=== PATIENT | male | born 1940 | race Caucasian/White ===

== ENCOUNTER 2017-05-19 11:57 | Inpatient (IN) | payer MEDICARE, OTHER ==
[~2017-05-19] VITALS: Ht 167.6 cm; Wt 76.2 kg
[~2017-05-19 11:57] MED LIST: ATOR40TA PO; CLOP75TA2 PO; FERR1TAB44 PO; FINA5TAB11 PO; METO-302 PO; TAMS0.4C34 PO
--- NOTE | 2017-05-19 12:05 | NUR ---
PATIENT BIB RA D/T FEVER THIS MORNING. PATIENT IS VENT/TRACH DEPENDENT. NO SOB. PATIENT IS HYPOTENSIVE AT THIS TIME. NO FEVER AT THIS TIME. PATIENT HAS GT AND PICC ON JUAN A. SAFTY AND COMFORT MEASURES IN PLACE. AWAITING MD ORDERS.
[2017-05-19 12:19] VITALS: BP 93/54
--- NOTE | 2017-05-19 12:19 | NUR ---
PT LACED ON [facility] VENT VIA TRACH SIZE 6DCT SHILEY. VENT SETTINGS BELLOW PER RT TRANSPORTER: AC 16 VT 500 FIO2 40% PEEP 5 BREATH SOUNDS CLEAR BILATERAL. RAFFY @ BEDSIDE. Addendum: 05/19/17 at 1234 by LOTTIE ROBB RT Amended: Links added.
--- NOTE | 2017-05-19 12:27 | NUR ---
BLOOD DRAWN FROM PICC LINE AND SENT TO LAB.
[2017-05-19] MEDS ORDERED: PIPERACILLIN /TAZOBACTAM 3.375 G in IV D5W 50 ML IV ONE (12:30)
[2017-05-19] MEDS ORDERED: AZTREONAM 2 G in IV NS 0.9% 100 ML IV ONE (12:30)
[2017-05-19] MEDS ORDERED: ACETAMINOPHEN 650 MG/SUPP.RECT RC ONE ×2 (12:30→12:39)
[2017-05-19] MEDS ORDERED: IV NS 0.9% 1,000 ML BAG IV ONE (12:30)
[2017-05-19 12:51] LABS: BASOPHILS # (AUTO) 0.1 /CMM (0.0-0.2); BASOPHILS % (AUTO) 0.6 % (0.0-2.0); EOSINOPHILS # (AUTO) 0.5 /CMM (0.0-0.7); EOSINOPHILS % (AUTO) 5.4 % (0.0-6.0); HEMATOCRIT 25 % (39-51); HEMOGLOBIN 8.4 g/dL (13.5-17.5); LYMPHOCYTES # (AUTO) 1.6 /CMM (0.8-4.8); LYMPHOCYTES % (AUTO) 18.8 % (20.0-44.0); MEAN CORPUSCULAR HEMOGLOBIN 29 PG (26.0-33.0); MEAN CORPUSCULAR HGB CONC 33 g/dl (31.0-36.0); MEAN CORPUSCULAR VOLUME 88 fL (80-96); MONOCYTES # (AUTO) 0.5 /CMM (0.1-1.30); MONOCYTES % (AUTO) 6.1 % (2.0-12.0); NEUTROPHILS # (AUTO) 5.8 /CMM (1.8-8.9); NEUTROPHILS % (AUTO) 69.1 % (43.0-81.0); PLATELET COUNT (AUTO) 217 /CMM (150-450); RED BLOOD CELL COUNT(AUTO) 2.86 MIL/uL (4.5-6.0); WHITE BLOOD COUNT (AUTO) 8.5 K/uL (4.3-11.0)
[2017-05-19 12:59] LABS: CALCIUM, SERUM 8.4 mg/dL (8.5-10.1); CARBON DIOXIDE 28 mmol/L (21-32); CHLORIDE 103 mmol/L (98-107); GLUCOSE 98 mg/dL (74-106); POTASSIUM 3.5 mmol/L (3.5-5.1); SODIUM SERUM 139 mmol/L (136-145); UREA NITROGEN, BLOOD 31 mg/dL (7-18)
[2017-05-19 13:05] LABS: ALANINE AMINOTRANSFERASE 41 U/L (12-78); ALBUMIN 1.8 g/dL (3.4-5.0); ALKALINE PHOSPHATASE 144 U/L (46-116); ASPARTATE AMINOTRANSFERASE 31 U/L (15-37); BILIRUBIN,DIRECT 0.1 mg/dL (0.0-0.2); BILIRUBIN,TOTAL 0.3 mg/dL (0.2-1.0); TOTAL PROTEIN, SERUM 7.6 g/dL (6.4-8.2)
[2017-05-19 13:06] LABS: INR 0.97 (0.87-1.13); PROTHROMBIN TIME 10.1 SECS (9.5-12.7)
[2017-05-19 13:07] LABS: TROPONIN I < 0.017 ng/mL (0.00-0.056)
--- NOTE | 2017-05-19 13:20 | NUR ---
URINE OBTAINED FROM JOLLEY CATH AND SENT TO LAB.
[2017-05-19 13:47] LABS: APPEARANCE,URINE Clear (CLEAR); BILIRUBIN,URINE Negative (NEGATIVE); BLOOD, URINE Trace-intact Ery/uL (NEGATIVE); COLOR,URINE Yellow (YELLOW); KETONES,URINE Negative (NEGATIVE); LEUKOCYTE ESTERASE ,URINE Large (NEGATIVE); NITRITE, URINE Positive (NEGATIVE); PH,URINE 7.5 (5.0-8.0); PROTEIN,URINE Trace mg/dl (NEGATIVE); UGLUCOSE Negative (NEGATIVE); UROBILINOGEN,URINE 0.2 EU/dL (0.2)
[2017-05-19 13:54] LABS: BACTERIA,URINE Few /HPF (None Seen); RBC,URINE 0-3 /HPF (0-2); WBC,URINE 80-100 /HPF (0-3)
[2017-05-19 13:55] LABS: SQUAMOUS EPITHELIAL CELL,UR Few /HPF (None Seen)
--- NOTE | 2017-05-19 14:03 | NUR ---
GROUP CALLED, DECKHAND CRAB BOAT, PAGED TO CALL BACK
--- NOTE | 2017-05-19 14:16 | NUR ---
CALLED NURSING SUP. FOR TELE BED
--- NOTE | 2017-05-19 15:14 | NUR ---
REPORT GIVEN TO YUE TELLES FOR ADMISSION.
[2017-05-19] MEDS ORDERED: ACET325T53 GT ×2 (15:33)
[2017-05-19] MEDS ORDERED: CLON0.5T4 GT (15:33)
[2017-05-19] MEDS ORDERED: IPRA3AMP IH ×2 (15:33)
[2017-05-19] MEDS ORDERED: DOCU100T2 GT (15:33)
[2017-05-19] MEDS ORDERED: BISA5TAB10 GT (15:33)
--- NOTE | 2017-05-19 15:35 | NUR ---
PATIENT TRANSPORTED TO [facility] FOR ADMISSION VIA STRETCHER WITH EMT, RN, AND RT. KOKI RANGEL TO PROVIDE MINOR.
--- NOTE | 2017-05-19 15:40 | NUR ---
RN INITIAL NOTE RECEIVED PT FROM ER VIA JT. UNABLE TO RECEIVE REPORT TAKEN DONE BY SRINIVAS Calle. PT NON VERBAL. PICC LINE. FC. VENT. PICTURES TAKEN AND PLACED IN CHART WILL CONTINUE TO MONITOR. SON AND @ BEDSIDE. TELE SR. NO S/S OF SOB. BED BATH DONE.
--- NOTE | 2017-05-19 15:43 | NUR ---
TRANSFERRED FROM ER TO 107, PT USED SAME [facility] VENT. VENT PLUGGED ON RED OUTLET WITH ALARMS ON AND AUDIBLE. Addendum: 05/19/17 at 1544 by LOTTIE ROBB RT Amended: Links added.
--- NOTE | 2017-05-19 15:51 | NUR ---
RN NOTE PAGED FOR ADMISSION ORDERS.
[2017-05-19] MEDS ORDERED: LEVO100T9 GT (15:58)
[2017-05-19] MEDS ORDERED: LORA2TAB GT (15:58)
[2017-05-19] MEDS ORDERED: HEPA50008 SQ (15:58)
[2017-05-19] MEDS ORDERED: FURO20TA4 GT (15:58)
[2017-05-19] MEDS ORDERED: MIDO10TA GT (15:58)
[2017-05-19] MEDS ORDERED: PROT946L GT (15:58)
[2017-05-19] MEDS ORDERED: HYDR-4076 GT (15:58)
[2017-05-19] MEDS ORDERED: SENN-18 GT (15:58)
[2017-05-19] MEDS ORDERED: LANS30CA56 GT (15:58)
[2017-05-19] MEDS ORDERED: [UNRECOGNIZED DRUG - CODE] GT (15:58)
[2017-05-19] MEDS ORDERED: METO25TA6 GT (15:58)
[2017-05-19] MEDS ORDERED: HYDR-552 GT ×2 (15:58)
[2017-05-19] MEDS ORDERED: ASCO500S2 GT (15:58)
[2017-05-19] MEDS ORDERED: ONDA-25 GT (16:01)
[2017-05-19] MEDS ORDERED: MISCELLANEOUS MED 1 EA EA XX ONE (16:30)
[2017-05-19 17:00] VITALS: BP 110/64
[2017-05-19] MEDS ORDERED: Medication Not On Formulary EA (Ipratropium/Albuterol Sulfate (Duoneb 2.5-0.5 Mg/3 Ml So IH PRN (17:00)
[2017-05-19] MEDS ORDERED: DOSE PER PHARMACY (MD SPECIFY MEDICATION) 1 EA XX PRN (17:00)
[2017-05-19] MEDS ORDERED: BISACODYL (5 MG) 5 MG TABLET.DR GT PRN (17:00)
[2017-05-19] MEDS ORDERED: LORAZEPAM 1 MG TABLET GT PRN (17:00)
[2017-05-19] MEDS ORDERED: hydrALAZINE HCL 25 MG TABLET GT PRN (17:00)
[2017-05-19] MEDS ORDERED: ALBUTEROL FS 2.5 MG/3 ML VIAL.NEB NEB PRN (17:30)
[2017-05-19] MEDS ORDERED: IPRATROPIUM NEB FS 0.5 MG/2.5 ML AMPUL.NEB NEB PRN (17:30)
[2017-05-19] MEDS ORDERED: ONDANSETRON 4 MG TAB.RAPDIS GT PRN (17:30)
[2017-05-19] MEDS: MIDODRINE HCL (5MG) 5 MG TABLET GT SCH (17:52)
[2017-05-19] MEDS: DOCUSATE SODIUM LIQ 100 MG/10 ML UDC GT SCH (17:52)
[2017-05-19] MEDS: FUROSEMIDE 20 MG TABLET GT SCH (17:52)
[2017-05-19] MEDS: HEPARIN SODIUM, PORCINE 5000 UNITS/1 ML VIAL SQ SCH (17:54)
[2017-05-19] MEDS: PROSOURCE / PROSTAT (PYXIS) 30 ML UDC GT SCH (18:05)
[2017-05-19] MEDS: METOPROLOL TARTRATE 25 MG TABLET GT SCH (18:07)
--- NOTE | 2017-05-19 19:05 | NUR ---
RN OPENING NOTES RECEIVED REPORT FROM JOSE TELLES. PATIENT NON-RESPONSIVE TO VERBAL STIMULI, OPENS EYES INTERMITTENTLY. TRACH INTACT, TOLERATING SETTINGS AC 16, TV 500, FI02 40%, PEEP 5. NO RESPIRATORY DISTRESS NOTED. JOLLEY CATH INTACT AND DRAINING YELLOW URINE. G-TUBE INTACT AND FLUSHING WELL. RIGHT UPPER ARM PICC CDI. SIDE RAILS UP, BED LOCKED AND IN LOWEST POSITION. WILL CONTINUE TO MONITOR.
--- NOTE | 2017-05-19 19:15 | NUR ---
RN CLOSING NOTE REPORT GIVEN LUZ MARIA RN PM SHIFT FOR MINOR. TELE SR THROUGH OUT. PICC FLUSHED PATENT AND INTACT. PEG CK PATENT FLUSHED AND CHECKED. VENT SETTING SHILEY #6 AC 16 TV 500 F102 40% PEEP 5. ALL SAFETY MEASURES IN PLACE. ALL ORDERS CARRIED OUT.
[2017-05-19] MEDS ORDERED: Medication Not On Formulary EA (Ipratropium/Albuterol Sulfate (Duoneb 2.5-0.5 Mg/3 Ml So IH SCH (19:30)
[2017-05-19] MEDS: IPRATROPIUM NEB FS 0.5 MG/2.5 ML AMPUL.NEB NEB SCH (20:21)
[2017-05-19] MEDS: ALBUTEROL FS 2.5 MG/3 ML VIAL.NEB NEB SCH (20:21)
--- NOTE | 2017-05-19 20:33 | NUR ---
RT PATIENT REC'D TRACHED ON [facility] VENT WITH ORDERED SETTINGS FOSTER WELL. VENT ALARMS CHECKED + AUDIBLE. SX'D WITH SMALL AMT PALE SEMITHICK SECRETIONS. B/S DIM. BORRERO BAG AT HOB. CONT CURRENT PLAN OF CARE. Addendum: 05/19/17 at 2032 by SAHARA YOUSIF RT Amended: Links added.
[2017-05-19 21:00] VITALS: BP 101/55
[2017-05-19] MEDS: ACETAMINOPHEN 650 MG/20.3 ML UDC GT SCH (21:00)
[2017-05-19] MEDS: HYDROCODONE/APAP 5/325MG 1 EACH TABLET GT SCH (21:00)
--- NOTE | 2017-05-19 21:00 | NUR ---
RN NOTES TYLENOL 650MG QSHIFT AND NORCO 5-325 MG QSHIFT NOT ADMINISTERED BECAUSE ORDER NEEDS TO BE CLARIFIED WITH PHARMACY AND MD IN AM. PRN AND ROUTINE FREQUENCY OF THE SAME MEDICATIONS ORDERED. Addendum: 05/19/17 at 2341 by ROZINA PEREIRA RN PATIENT NOT IN DISTRESS, NO S/S OF PAIN NOTED. AFEBRILE.
[2017-05-19] MEDS: AZTREONAM 1 G in IV NS 0.9% 100 ML IV SCH (21:16)
[2017-05-19] MEDS: clonazePAM 0.5 MG TABLET GT SCH (21:17)
[2017-05-20] VITALS (10 sets, daily range): BP systolic 101–131; BP diastolic 54–65
[2017-05-20] MEDS: ALBUTEROL FS 2.5 MG/3 ML VIAL.NEB NEB SCH ×4 (01:58→19:23)
[2017-05-20] MEDS: IPRATROPIUM NEB FS 0.5 MG/2.5 ML AMPUL.NEB NEB SCH ×4 (01:58→19:23)
[2017-05-20] MEDS: clonazePAM 0.5 MG TABLET GT SCH (05:09)
[2017-05-20] MEDS: AZTREONAM 1 G in IV NS 0.9% 100 ML IV SCH ×3 (05:09→20:58)
--- NOTE | 2017-05-20 06:30 | NUR ---
RN NOTES OPEN WOUND NOTED ON PATIENT'S RIGHT EAR WHILE DURING BATHING AND REPOSITIONING. PICTURE TAKEN AND PLACED IN CHART, CHARGE NURSE AWARE. MEPILEX APPLIED. WILL ENDORSE TO AM NURSE.
[2017-05-20 06:33] LABS: BASOPHILS % (AUTO) 0.8 % (0.0-2.0); EOSINOPHILS # (AUTO) 0.5 /CMM (0.0-0.7); EOSINOPHILS % (AUTO) 7.8 % (0.0-6.0); HEMATOCRIT 26 % (39-51); HEMOGLOBIN 8.5 g/dL (13.5-17.5); LYMPHOCYTES # (AUTO) 1.3 /CMM (0.8-4.8); LYMPHOCYTES % (AUTO) 21.9 % (20.0-44.0); MEAN CORPUSCULAR HEMOGLOBIN 30 PG (26.0-33.0); MEAN CORPUSCULAR HGB CONC 33 g/dl (31.0-36.0); MEAN CORPUSCULAR VOLUME 89 fL (80-96); MONOCYTES # (AUTO) 0.5 /CMM (0.1-1.30); MONOCYTES % (AUTO) 7.7 % (2.0-12.0); NEUTROPHILS # (AUTO) 3.6 /CMM (1.8-8.9); NEUTROPHILS % (AUTO) 61.8 % (43.0-81.0); PLATELET COUNT (AUTO) 218 /CMM (150-450); RDW COEFFICIENT OF VARIATION 16.1 (11.5-15.0); RED BLOOD CELL COUNT(AUTO) 2.88 MIL/uL (4.5-6.0); WHITE BLOOD COUNT (AUTO) 5.9 K/uL (4.3-11.0)
[2017-05-20 06:38] LABS: CALCIUM, SERUM 7.9 mg/dL (8.5-10.1); CARBON DIOXIDE 28 mmol/L (21-32); CHLORIDE 105 mmol/L (98-107); CREATININE 0.7 mg/dL (0.6-1.3); GLUCOSE 87 mg/dL (74-106); SODIUM SERUM 142 mmol/L (136-145); UREA NITROGEN, BLOOD 26 mg/dL (7-18)
--- NOTE | 2017-05-20 07:05 | NUR ---
JULIANN INITIAL RN NOTE: RECEIVED PT RESTING IN BED W/NO SIGNS OF DISCOMFORT, NONVERBAL. TRACH INTACT, CLEAN W/NO SOB, TOLERATING VENT SETTINGS AC 16, TV 500, FI02 40%, PEEP 5. FC URINE OUTFIT DRAINING YELLOW. ON TELE MONITOR SR. GT INTACT AND FLUSHING WELL. JUAN A PICC CDI. BED KEPT LOW AND IN LOCKED POSITION. CALL LIGHT WITHIN REACH. ALL NEEDS MET AND ANTICIPATED. WILL CONT TO MONITOR.
--- NOTE | 2017-05-20 07:15 | NUR ---
RN CLOSING NOTES PATIENT ASLEEP IN BED. NO RESPIRATORY DISTRESS NOTED THROUGHOUT SHIFT. O2 SAT 94-95% @ THIS TIME. JOLLEY INTACT AND DRAINING YELLOW URINE. RIGHT UPPER PICC CDI. NO SIGNIFICANT CHANGES DURING SHIFT. WILL ENDORSE MINOR TO AM NURSE.
--- NOTE | 2017-05-20 07:52 | NUR ---
Received male malcolm pt on mechanical vent. Pt Dima 6 malcolm is secure. Vent is plugged into a red outlet, alarms are set and audible, and BVM is at bedside. Addendum: 05/20/17 at 0754 by MERCED REYES RT Amended: Links added.
[2017-05-20] MEDS ORDERED: KEY,NONCONTROL,TO KEEP IN PYXI 1 EA MC ONE (08:44)
[2017-05-20] MEDS ORDERED: MULTIVIT, IRON, MIN NO. 8, FA 1 TAB GT SCH (09:00)
[2017-05-20] MEDS: METOPROLOL TARTRATE 25 MG TABLET GT SCH ×2 (09:00→16:33)
[2017-05-20] MEDS: HYDROCODONE/APAP 5/325MG 1 EACH TABLET GT SCH ×2 (09:00→21:00)
[2017-05-20] MEDS: ACETAMINOPHEN 650 MG/20.3 ML UDC GT SCH ×2 (09:20→20:59)
[2017-05-20] MEDS: SENNOSIDES 8.6 MG TABLET GT SCH (09:21)
[2017-05-20] MEDS: FUROSEMIDE 20 MG TABLET GT SCH ×2 (09:21→16:33)
[2017-05-20] MEDS: MIDODRINE HCL (5MG) 5 MG TABLET GT SCH ×3 (09:21→16:34)
[2017-05-20] MEDS: ASCORBIC ACID SYRUP 500 MG/5 ML UDC GT SCH (09:21)
[2017-05-20] MEDS: PANTOPRAZOLE 40 MG/PACK PACK NG SCH (09:21)
[2017-05-20] MEDS: ATORVASTATIN 40 MG TABLET PO SCH (09:21)
[2017-05-20] MEDS: DOCUSATE SODIUM LIQ 100 MG/10 ML UDC GT SCH (09:21)
[2017-05-20] MEDS: HEPARIN SODIUM, PORCINE 5000 UNITS/1 ML VIAL SQ SCH ×2 (09:48→16:34)
[2017-05-20] MEDS: PROSOURCE / PROSTAT (PYXIS) 30 ML UDC GT SCH ×2 (09:58→17:11)
[2017-05-20] MEDS: LEVOTHYROXINE SODIUM 100 MCG TABLET GT SCH (13:14)
[2017-05-20] MEDS: FIBERSOURCE HN 1,000 ML BOTTLE GT PRN (13:51)
--- NOTE | 2017-05-20 13:56 | NUR ---
M48/M60 TANK DRIVER NOTE: GTUBE STARTED ORDERED BY DR. BAZZI. KEEP HOB ELEVATED. WILL CONT TO MONITOR.
--- NOTE | 2017-05-20 18:00 | NUR ---
TAVERN KEEPER NOTE: PATIENT TOLERATING GTUBE FEEDING FIBERSOURCE HN AT 50CC/HR. NO VOMITING OR ABDOMINAL DISTENTION. HOB ELEVATED. WILL CONT TO MONITOR.
--- NOTE | 2017-05-20 19:00 | NUR ---
SMOKE CONTROL SUPERVISOR NOTE: DR. BAZZI AT BEDSIDE. BOTH HANDS SWOLLEN, STILL OK TO DO IV 1/2 NS WITH KCL 20 AT 60CC/HR MAX 2L. NEW ORDER GIVEN FOR NEW MEDICATIONS AND LABS. WILL ENDORSE TO PM NURSE FOR MINOR.
--- NOTE | 2017-05-20 19:19 | NUR ---
TELE CLOSING RN NOTE: PT RESTING IN BED W/NO SIGNS OF DISCOMFORT, NONVERBAL. TRACH INTACT, CLEAN W/NO SOB, TOLERATING VENT SETTINGS AC 16, TV 500, FI02 40%, PEEP 5 WITH NO SOB. FC URINE OUTPUT DRAINING YELLOW. GT INTACT AND FLUSHING WELL WITH FIBERSOURCE HN RUNNING AT 55CC/HR. NO ABDOMINAL DISTENTION OR VOMITING. JUAN A PICC CDI. BED KEPT LOW AND IN LOCKED POSITION. CALL LIGHT WITHIN REACH. ALL NEEDS MET AND ANTICIPATED. WILL ENDORSE TO PM NURSE FOR MINOR.
--- NOTE | 2017-05-20 19:25 | NUR ---
TELE/RN NOTES RECEIVED PT IN STABLE CONDITION. EYES CLOSED. NONVERBAL, QUIET AND CALM. TELE READING NSR. TRACH TO VENT WITH SETTINGS @ TV 500, AC 16, FIO2 40%, O2 SAT 100%. RT AT BEDSIDE. RIGHT EAR WOUND COVERED WITH MEPILEX, SCANT DRAINAGE NOTED. RIGHT UPPER ARM PICC DOUBLE LUMEN, FLUSHED AND PATENT, SITE CDI. DELIA HAND EDEMA +2. GT FEEDING FIBERSOURCE @ 55ML/HR IN PROGRESS, RESIDUAL 10 ML, SITE CDI AND COVERED WITH DRSNG. JOLLEY CATH INTACT AND DRAINING LIGHT DAVID URINE. SACRAL WOUND COVERED WITH MEPILEX, ORDERED FOR WOUND CONSULT. WILL KEEP SKIN CLEAN, DRY AND INTACT. BED AT LOWEST POSITION AND LOCKED, SRX3 UP, SIDE TABLE AND CALL LOPEZ WITHIN REACH. BED ALARM ON. WILL CONTINUE TO MONITOR.
--- NOTE | 2017-05-20 19:29 | NUR ---
RT PATIENT REC'D TRACHED ON [facility] VENT WITH ORDERED SETTINGS FOSTER WELL. VENT ALARMS CHECKED + AUDIBLE. SX'D WITH SMALL AMT PALE SEMITHICK SECRETIONS. B/S DIM. BORRERO BAG AT HOB. CONT CURRENT PLAN OF CARE. Addendum: 05/20/17 at 1930 by SAHARA YOUSIF RT Amended: Links added.
[2017-05-20] MEDS ORDERED: HALOPERIDOL 1 MG TABLET GT PRN (20:00)
[2017-05-21] VITALS (12 sets, daily range): BP systolic 95–117; BP diastolic 49–73
[2017-05-21] MEDS: IPRATROPIUM NEB FS 0.5 MG/2.5 ML AMPUL.NEB NEB SCH ×4 (01:44→19:48)
[2017-05-21] MEDS: ALBUTEROL FS 2.5 MG/3 ML VIAL.NEB NEB SCH ×4 (01:45→19:48)
[2017-05-21] MEDS: AZTREONAM 1 G in IV NS 0.9% 100 ML IV SCH ×3 (04:12→21:23)
[2017-05-21 05:55] LABS: BASOPHILS # (AUTO) 0.1 /CMM (0.0-0.2); BASOPHILS % (AUTO) 1.2 % (0.0-2.0); EOSINOPHILS # (AUTO) 0.4 /CMM (0.0-0.7); EOSINOPHILS % (AUTO) 5.7 % (0.0-6.0); HEMATOCRIT 29 % (39-51); HEMOGLOBIN 9.4 g/dL (13.5-17.5); LYMPHOCYTES # (AUTO) 2.1 /CMM (0.8-4.8); LYMPHOCYTES % (AUTO) 30.3 % (20.0-44.0); MEAN CORPUSCULAR HEMOGLOBIN 29 PG (26.0-33.0); MEAN CORPUSCULAR HGB CONC 33 g/dl (31.0-36.0); MEAN CORPUSCULAR VOLUME 90 fL (80-96); MONOCYTES # (AUTO) 0.7 /CMM (0.1-1.30); MONOCYTES % (AUTO) 10.5 % (2.0-12.0); NEUTROPHILS # (AUTO) 3.7 /CMM (1.8-8.9); NEUTROPHILS % (AUTO) 52.3 % (43.0-81.0); PLATELET COUNT (AUTO) 260 /CMM (150-450); RDW COEFFICIENT OF VARIATION 16.7 (11.5-15.0); RED BLOOD CELL COUNT(AUTO) 3.21 MIL/uL (4.5-6.0)
[2017-05-21 06:14] LABS: B-TYPE NATRIURETIC PEPTIDE 1550 PG/ML (0-125); CALCIUM, SERUM 8.2 mg/dL (8.5-10.1); CARBON DIOXIDE 27 mmol/L (21-32); CHLORIDE 108 mmol/L (98-107); CREATININE 0.7 mg/dL (0.6-1.3); GLUCOSE 114 mg/dL (74-106); MAGNESIUM 2.3 mg/dL (1.8-2.4); POTASSIUM 4.2 mmol/L (3.5-5.1); SODIUM SERUM 140 mmol/L (136-145); UREA NITROGEN, BLOOD 30 mg/dL (7-18)
--- NOTE | 2017-05-21 07:25 | NUR ---
TELE/RN NOTES NO SIGNIFICANT CHANGES. NO RESPIRATORY DISTRESS NOTED. NO CHANGES TO VENT SETTING, O2 SAT 99-100%. SLEPT MOST OF NIGHT. IVF AND GT FEEDING IN PROGRESS. JOLLEY CATH INTACT DRAINING 650ML OF YELLOW URINE. SKIN INTEGRITY MAINTAINED. KEPT SKIN CDI. TURNED AND REPOSITIONED Q2H. BED AT LOWEST POSITION AND LOCKED. SRX3 UP. ENDORSED TO AM SHIFT FOR CONTINUITY OF CARE.
--- NOTE | 2017-05-21 07:43 | NUR ---
TOOL HONING MACHINE SET UP OPERATOR NOTES PT RECEIVED ON BED, NON VERBAL, VENT TRACH DEPENDENT, OPENS EYES WHEN CALLING HIS NAME. ON TELE MONITOR SR IN THE 90S. BILATERAL HAND EDEMA, ELEVATED ON PILLOWS. JOLLEY CATH DRAINING TO GRAVITY, YELLOW CLEAR URINE. ISOFLEX BAG FOR SKIN MANAGEMENT. G TUBE FEEDING RUNNING, PT TOLERATING. NO RESIDUAL. HOB ELEVATED. RIGHT UPPER ARM PICC LINE FLUSHED WELL, WILL CONTINUE FLUIDS ARE ORDERED. NO DISTRESS AT THIS TIME.CALL LIGHT WITHIN REACH, BED IN LOWEST POSITION AND LOCKED. WILL CONTINUE TO MONITOR.
[2017-05-21] MEDS: SENNOSIDES 8.6 MG TABLET GT SCH (09:05)
[2017-05-21] MEDS: MIDODRINE HCL (5MG) 5 MG TABLET GT SCH ×3 (09:05→16:05)
[2017-05-21] MEDS: CLOPIDOGREL BISULFATE 75 MG TABLET GT SCH (09:05)
[2017-05-21] MEDS: HYDROCODONE/APAP 5/325MG 1 EACH TABLET GT SCH (09:06)
[2017-05-21] MEDS: ATORVASTATIN 40 MG TABLET PO SCH (09:06)
[2017-05-21] MEDS: ASCORBIC ACID SYRUP 500 MG/5 ML UDC GT SCH (09:06)
[2017-05-21] MEDS: ACETAMINOPHEN 650 MG/20.3 ML UDC GT SCH ×2 (09:06→21:24)
[2017-05-21] MEDS: PANTOPRAZOLE 40 MG/PACK PACK NG SCH (09:07)
[2017-05-21] MEDS: METOPROLOL TARTRATE 25 MG TABLET GT SCH ×2 (09:07→16:09)
[2017-05-21] MEDS: FUROSEMIDE 20 MG TABLET GT SCH ×2 (09:08→16:05)
[2017-05-21] MEDS: PROSOURCE / PROSTAT (PYXIS) 30 ML UDC GT SCH ×2 (09:10→16:30)
[2017-05-21] MEDS: FIBERSOURCE HN 1,000 ML BOTTLE GT PRN (10:13)
--- NOTE | 2017-05-21 11:24 | NUR ---
WOUND CARE CONSULT PATIENT SEEN AND SKIN INTEGRITY ASSESSMENT DONE. SEE COST CONTROL SPECIALIST ASSESSMENT IN PCS FOR TODAY. RECOMMEND SURGICAL CONSULT FOR SACRAL UNSTAGEABLE PRESSURE ULCER. PATIENT WITH CURRENT SAVI AT 9. PT ON JACKIE ISOFLEX LOW AIRLOSS SPECIALTY BED. CONTINUE TURNING SCHED Q 2 HOURS, BILATERAL HEEL FLOATING, USE OF Z GUARD FOR SKIN/MOISTURE MANAGEMENT. ALL DISCUSSED WITH NURSING STAFF. MD IN AGREEMENT WITH PLAN OF CARE.
--- NOTE | 2017-05-21 11:56 | NUR ---
MOLECULAR TECHNOLOGIST NOTES DR VANEGAS AT BEDSIDE, AWARE POTASSIUM 4.2. NEW IV FLUIDS ORDERED WITHOUT POTASSIUM.
--- NOTE | 2017-05-21 11:58 | NUR ---
RN INTERNATIONAL NOTES DR. BAZZI AT BEDSIDE, AWARE OF POTASSIUM, BNP 1550. AWARE THAT PT IS ON PLAVIX AND HEPARIN, STATED OK TO GIVE BOTH. D/ZAIDA NORCO DUE TO PT BEING ALTERED. D/ZAIDA IV FLUIDS.
[2017-05-21] MEDS ORDERED: IV 1/2NS 1000 ML 1,000 ML IV PRN (12:00)
[2017-05-21] MEDS: HEPARIN SODIUM, PORCINE 5000 UNITS/1 ML VIAL SQ SCH ×2 (12:07→16:07)
[2017-05-21] MEDS: LEVOTHYROXINE SODIUM 100 MCG TABLET GT SCH (12:46)
--- NOTE | 2017-05-21 12:50 | NUR ---
MARSHMALLOW MACHINE OPERATOR NOTE SEEN BY WOUND NURSE WITH NEW ORDER TX GIVEN ORDERED
[2017-05-21] MEDS: NEOMY SULF/BACITRAC ZN/POLY 15 GM TUBE TP SCH (13:02)
--- NOTE | 2017-05-21 14:00 | NUR ---
teletype adjuster note family at bedside , dr mahajan discussing plan of care of patient , will cont to monitor closely
--- NOTE | 2017-05-21 17:21 | NUR ---
MULTIMEDIA ENGINEER NOTES PT RESTING COMFORTABLY IN BED, SUCTIONING DONE, NO SOB NOTED SATING WELL. PT REPOSITIONED AND CHANGED. WOUND CARE COMPLETE. NO DISTRESS AT THIS TIME. WILL CONTINUE TO MONITOR.
--- NOTE | 2017-05-21 19:03 | NUR ---
SECURITY SPECIALIST NOTES PT RESTING COMFORTABLY IN VENT, TOLERATING VENT SETTINGS, NO SOB NOTED. SON AT BEDSIDE UPDATE GIVEN. SIDE RAILS UP X3, BED LOCKED AND IN LOWEST POSITION, CALL LIGHT WITHIN REACH.
[2017-05-21] MEDS: HYDROCODONE/APAP 5/325MG 1 EACH TABLET GT PRN (21:24)
--- NOTE | 2017-05-21 21:52 | NUR ---
PT RECEIVED TRACH ON VENT. NO DISTRESS. PT TOLERATING VENT SETTINGS. SX'D FOR SML AMT OF THIN WHITE SECRETIONS. VENT ALARMS SET AND AUDIBLE. ADAIR KAM AT [facility]. WILL CONTINUE TO MONITOR. Addendum: 05/21/17 at 2153 by SAHARA YOUSIF RT Amended: Links added.
[2017-05-22] VITALS: BP_SYST 101; BP_SYST 98; BP_DIAS 46; BP_DIAS 60
[2017-05-22] MEDS: IPRATROPIUM NEB FS 0.5 MG/2.5 ML AMPUL.NEB NEB SCH ×4 (01:39→19:22)
[2017-05-22] MEDS: ALBUTEROL FS 2.5 MG/3 ML VIAL.NEB NEB SCH ×4 (01:39→19:22)
[2017-05-22 04:00] VITALS: BP 104/52
[2017-05-22] MEDS: AZTREONAM 1 G in IV NS 0.9% 100 ML IV SCH ×3 (05:22→21:25)
--- NOTE | 2017-05-22 07:32 | NUR ---
RN NOTE: INITIAL ASSESSMENT PATIENT RECEIVED IN STABLE CONDITION NON VERBAL, OPEN EYES TO VERBAL & TACTILE STIMULI. ON VENT -TRAC, SETTINGS TOLERATING WELL. HOB ELEVATED. ASPIRATION PRECAUTIONS OBSERVED. RIGHT UPPER ARM, INTACT , FLUSHED WITHOUT DIFFICULTY. DRESSING INTACT & DRY. G-TUBE SITE INTACT, RUNNING WITH TUBE FEEDING ORDERED, NO RESIDUAL NOTED. SAFETY MEASURES OBSERVED. WILL CONTINUE TO MONITOR CLOSELY.
[2017-05-22 08:00] VITALS: BP 107/56
--- NOTE | 2017-05-22 08:30 | NUR ---
RN NOTE: RECEIVED CALL FROM RADIOLOGY, CHEST X-RAY, NEAR COMPLETE OPACITIES OF THE LEFT HEMITHORAX, MEDIASTINAL SHIFT SUGGEST POSSIBLE MUCOUS PLUGGING & ATELECTASIS. PAGE DR. RODRIGUEZ N. MESSAGE RELAYED BY SHIFT CHARGE NURSE TO DR. RODRIGUEZ. NO NEW ORDERS AT THIS TIME. CONTINUE TO MONITOR CLOSELY.
[2017-05-22] MEDS: ASCORBIC ACID SYRUP 500 MG/5 ML UDC GT SCH (09:04)
[2017-05-22] MEDS: PROSOURCE / PROSTAT (PYXIS) 30 ML UDC GT SCH ×2 (09:04→16:08)
[2017-05-22] MEDS: PANTOPRAZOLE 40 MG/PACK PACK NG SCH (09:05)
[2017-05-22] MEDS: ACETAMINOPHEN 650 MG/20.3 ML UDC GT SCH ×2 (09:05→21:25)
[2017-05-22] MEDS: SENNOSIDES 8.6 MG TABLET GT SCH (09:05)
[2017-05-22] MEDS: FUROSEMIDE 20 MG TABLET GT SCH ×2 (09:06→16:12)
[2017-05-22] MEDS: MIDODRINE HCL (5MG) 5 MG TABLET GT SCH ×3 (09:07→16:10)
[2017-05-22] MEDS: ATORVASTATIN 40 MG TABLET PO SCH (09:07)
[2017-05-22] MEDS: CLOPIDOGREL BISULFATE 75 MG TABLET GT SCH (09:07)
[2017-05-22] MEDS: HEPARIN SODIUM, PORCINE 5000 UNITS/1 ML VIAL SQ SCH ×2 (09:08→16:11)
[2017-05-22] MEDS: METOPROLOL TARTRATE 25 MG TABLET GT SCH ×2 (09:09→16:13)
[2017-05-22] MEDS: NEOMY SULF/BACITRAC ZN/POLY 15 GM TUBE TP SCH (09:10)
[2017-05-22] MEDS: HYDROGEL DRESSING 90 GM TUBE TP SCH (09:10)
[2017-05-22] MEDS: FIBERSOURCE HN 1,000 ML BOTTLE GT PRN (11:18)
[2017-05-22 12:00] VITALS: BP 92/55
[2017-05-22] MEDS: ACETYLCYSTEINE 10% SOLN 400 MG/4 ML VIAL NEB SCH ×3 (12:03→23:48)
[2017-05-22] MEDS: LEVOTHYROXINE SODIUM 100 MCG TABLET GT SCH (12:16)
[2017-05-22 16:00] VITALS: BP_SYST 102; BP_SYST 118; BP_DIAS 63; BP_DIAS 66
[2017-05-22 20:00] VITALS: BP 114/55
--- NOTE | 2017-05-22 20:00 | NUR ---
RN INITIAL NOTE; PT ON THE BED WITHOUT ANY DISTRESS . PT IS NON VERBAL , EYES OPEN. BREATHING EVEN AND UNLABORED. TRACH CONNECTED TO [facility] VENT, SETTING ORDERED . TELE MONITOR SHOWING SR 92 AT THIS TIME. JUAN A PICC LINE INTACT AND PATENT. G TUBE INTACT AND PATENT WITH CONTINUE FIBERSOURCE @ 55 ML/HR . NO RESIDUAL NOTED, ASPIRATION PRECAUTION APPLIED. F/C INTACT AND DRAINING CLEAR YELLOWISH URINE . BED IN THE LOWEST/LOCKED POSITION, SAFETY MEASURES APPLIED , WILL TURN AND REPOSITION Q2H , WILL KEEP CLEAN AND DRY . WILL CONTINUE TO MONITOR .
[2017-05-22] MEDS: IV NS 0.9% 250 ML IV PRN (21:35)
[2017-05-23] VITALS: BP 99/48
[2017-05-23] MEDS: ALBUTEROL FS 2.5 MG/3 ML VIAL.NEB NEB SCH ×4 (01:10→19:46)
[2017-05-23] MEDS: IPRATROPIUM NEB FS 0.5 MG/2.5 ML AMPUL.NEB NEB SCH ×4 (01:10→19:46)
[2017-05-23 04:00] VITALS: BP 101/59
[2017-05-23] MEDS: FIBERSOURCE HN 1,000 ML BOTTLE GT PRN (04:48)
[2017-05-23] MEDS: AZTREONAM 1 G in IV NS 0.9% 100 ML IV SCH ×3 (04:51→20:31)
--- NOTE | 2017-05-23 07:37 | NUR ---
RN EOS NOTE PT REMAINED STABLE DURING THE SHIFT. NO ANY DISTRESS NOTED. IV SITE INTACT AND PATENT . G TUBE FEEDING TOLERATED WELL. NO RESIDUAL. ASPIRATION PRECAUTION APPLIED. ENDORSED TO NEXT SHIFT RN FOR CONTINUITY OF CARE .
[2017-05-23] MEDS: ACETYLCYSTEINE 10% SOLN 400 MG/4 ML VIAL NEB SCH ×3 (07:55→23:21)
[2017-05-23 08:00] VITALS: BP_SYST 101; BP_SYST 106; BP_DIAS 51
--- NOTE | 2017-05-23 08:00 | NUR ---
supervisor television chassis repair note PT ON THE BED ,. PT IS NON VERBAL , EYES OPEN. BREATHING EVEN AND UNLABORED. TRACH CONNECTED TO [facility] VENT, SETTING ORDERED ,AMBU BAG AT HOB. TELE MONITOR SHOWING SR 94 AT THIS TIME. JUAN A PICC LINE INTACT AND PATENT. G TUBE INTACT AND PATENT WITH CONTINUE FIBERSOURCE @ 55 ML/HR . NO RESIDUAL NOTED, ASPIRATION PRECAUTION APPLIED. KEEP HOB ELELVATED AT ALL TIME F/C INTACT AND DRAINING CLEAR YELLOWISH URINE . BED IN THE LOWEST/LOCKED POSITION, SAFETY MEASURES APPLIED , WILL TURN AND REPOSITION Q2H , WILL KEEP CLEAN AND DRY . WILL CONTINUE TO MONITOR ,T 100.1 TYLENOL GIVEN , COOLING MEASURE PROVIDED
[2017-05-23] MEDS: ACETAMINOPHEN 650 MG/20.3 ML UDC GT SCH ×2 (08:38→20:31)
[2017-05-23] MEDS: ATORVASTATIN 40 MG TABLET PO SCH (08:38)
[2017-05-23] MEDS: SENNOSIDES 8.6 MG TABLET GT SCH (08:38)
[2017-05-23] MEDS: FUROSEMIDE 20 MG TABLET GT SCH ×2 (08:38→17:14)
[2017-05-23] MEDS: ASCORBIC ACID SYRUP 500 MG/5 ML UDC GT SCH (08:38)
[2017-05-23] MEDS: PANTOPRAZOLE 40 MG/PACK PACK NG SCH (08:38)
[2017-05-23] MEDS: CLOPIDOGREL BISULFATE 75 MG TABLET GT SCH (08:39)
[2017-05-23] MEDS: METOPROLOL TARTRATE 25 MG TABLET GT SCH ×2 (08:39→17:14)
[2017-05-23] MEDS: HEPARIN SODIUM, PORCINE 5000 UNITS/1 ML VIAL SQ SCH ×2 (08:39→17:13)
[2017-05-23] MEDS: MIDODRINE HCL (5MG) 5 MG TABLET GT SCH ×3 (08:39→17:14)
[2017-05-23] MEDS: PROSOURCE / PROSTAT (PYXIS) 30 ML UDC GT SCH ×2 (08:41→17:20)
[2017-05-23] MEDS: HYDROGEL DRESSING 90 GM TUBE TP SCH (08:42)
[2017-05-23] MEDS: NEOMY SULF/BACITRAC ZN/POLY 15 GM TUBE TP SCH (08:42)
--- NOTE | 2017-05-23 09:35 | NUR ---
YARD CALLER NOTE NOTED FACE JERKING MOVEMENT , DR VANEGAS AT BEDSIDE NOTIFIED ABOUT THIS , ALSO AWARE THAT T 100.1 TYLENOL GIVEN ,WILL CONT TO MONITOR CLOSELY
--- NOTE | 2017-05-23 10:30 | NUR ---
ORTHOPEDIC DESIGNER NOTE RT AT BEDSIDE CHEST PT DOING
--- NOTE | 2017-05-23 11:31 | NUR ---
SCHOOL BUS ATTENDANT NOTE DOING DOPPLER UPPER EXTREMITIES ORDERED
[2017-05-23 12:00] VITALS: BP 111/56
[2017-05-23] MEDS: LEVOTHYROXINE SODIUM 100 MCG TABLET GT SCH (12:51)
--- NOTE | 2017-05-23 15:00 | NUR ---
PEDIATRIC HOSPITALIST NOTE SEEN BY DR BAZZI NOTIFIED THAT PATIENT HAS FACE TWITCHING AND HAD FEVER 100.1 EARLIER , ORDERED EGD AND KEPPRA IV FOR 2 DAYS THEN VIA G TUBE 750 MG , ORDER CARRIED OUT
[2017-05-23 16:00] VITALS: BP 125/54
[2017-05-23] MEDS ORDERED: LEVETIRACETAM (500MG) 1,000 MG in IV NS 0.9% 100 ML IV SCH (16:00)
[2017-05-23] MEDS: LEVETIRACETAM (500MG) 1,000 MG in IV NS 0.9% 100 ML IV SCH (17:50)
--- NOTE | 2017-05-23 18:12 | NUR ---
MORTGAGE OR LOAN UNDERWRITER NOTE ALL NEEDS ATTENDED , ON KEPPRA IV ORDERED, BED IN LOWEST AND LOCKED POSITION , WILL CONT TO MONITOR CLOSELY
--- NOTE | 2017-05-23 19:20 | NUR ---
PATTERN RULER INITIAL NOTE PT RECEIVED IN NO ACUTE DISTRESS. PT ON TELE WITH SR. F/C INTACT. JUAN A PICC LINE INTACT CLEAN AND DRY. GT RUNNING FIBERSOURCE @55CC/HR. WILL CONTINUE TO MONITOR FOR ANY ISSUES THAT WILL ARISE. COMFORT AND SAFETY MEASURES IN PLACE AND WILL BE ENSURED DURING SHIFT.
[2017-05-23 20:00] VITALS: BP 117/59
[2017-05-23] MEDS: IV NS 0.9% 250 ML IV PRN (23:03)
[2017-05-24] VITALS: BP 94/50
[2017-05-24] MEDS: ALBUTEROL FS 2.5 MG/3 ML VIAL.NEB NEB SCH ×4 (02:08→19:33)
[2017-05-24] MEDS: IPRATROPIUM NEB FS 0.5 MG/2.5 ML AMPUL.NEB NEB SCH ×4 (02:08→19:33)
[2017-05-24 04:00] VITALS: BP 101/53
[2017-05-24] MEDS: LEVETIRACETAM (500MG) 1,000 MG in IV NS 0.9% 100 ML IV SCH ×2 (04:38→16:52)
[2017-05-24] MEDS: AZTREONAM 1 G in IV NS 0.9% 100 ML IV SCH ×3 (05:18→21:42)
[2017-05-24] MEDS: ACETYLCYSTEINE 10% SOLN 400 MG/4 ML VIAL NEB SCH ×2 (07:28→15:09)
--- NOTE | 2017-05-24 07:30 | NUR ---
VINYL HANGER INITIAL NOTE RECEIVED PT IN BED.NO S/S OF DISTRESS.NO C/O PAIN,ON MECHANICAL VENT SETTINGS WELL TOLERATED.SAFETY MEASURES IN PLACE.BED IN LOW AND LOCKED POSITION.WILL CONTINUE TO MONITOR FOR CHANGES.
--- NOTE | 2017-05-24 07:41 | NUR ---
POWERHOUSE LABORER CLOSING NOTE PT REMAINS IN NO ACUTE DISTRESS AT THE END OF THE SHIFT. PT OPEN EYES BUT DOES NOT SPEAK. ON VENT TOLERATING SETTINGS WELL. ON TELE WITH SR. PT HAS A GT THAT IS CLEAN DRY AND INTACT RUNNING FEEDING. WOUND CARE DONE ORDERED. JUAN A PICC LINE IS CLEAND RY AND INTACT RUNNING TKO. PT IS COMFORTABLE AND CLEAN IN BED. WILL ENDORSE CARE TO AM NURSE.
[2017-05-24 08:00] VITALS: BP_SYST 113; BP_DIAS 53; BP_DIAS 55
[2017-05-24] MEDS: ACETAMINOPHEN 650 MG/20.3 ML UDC GT SCH ×2 (08:36→21:42)
[2017-05-24] MEDS: ASCORBIC ACID SYRUP 500 MG/5 ML UDC GT SCH (08:36)
[2017-05-24] MEDS: MIDODRINE HCL (5MG) 5 MG TABLET GT SCH ×3 (08:36→16:51)
[2017-05-24] MEDS: HEPARIN SODIUM, PORCINE 5000 UNITS/1 ML VIAL SQ SCH ×2 (08:37→16:53)
[2017-05-24] MEDS: METOPROLOL TARTRATE 25 MG TABLET GT SCH ×2 (08:37→16:51)
[2017-05-24] MEDS: PANTOPRAZOLE 40 MG/PACK PACK NG SCH (08:37)
[2017-05-24] MEDS: ATORVASTATIN 40 MG TABLET PO SCH (08:38)
[2017-05-24] MEDS: SENNOSIDES 8.6 MG TABLET GT SCH (08:38)
[2017-05-24] MEDS: FUROSEMIDE 20 MG TABLET GT SCH ×2 (08:38→16:50)
[2017-05-24] MEDS: CLOPIDOGREL BISULFATE 75 MG TABLET GT SCH (08:38)
[2017-05-24] MEDS: PROSOURCE / PROSTAT (PYXIS) 30 ML UDC GT SCH ×2 (08:39→17:35)
[2017-05-24] MEDS: HYDROGEL DRESSING 90 GM TUBE TP SCH (09:00)
[2017-05-24] MEDS: NEOMY SULF/BACITRAC ZN/POLY 15 GM TUBE TP SCH (09:00)
[2017-05-24 12:00] VITALS: BP 101/52
[2017-05-24] MEDS ORDERED: LORAZEPAM INJ 2 MG/ML VIAL IV STA ×2 (12:01→13:07)
[2017-05-24] MEDS: LEVOTHYROXINE SODIUM 100 MCG TABLET GT SCH (12:58)
[2017-05-24 16:00] VITALS: BP 129/67
[2017-05-24] MEDS ORDERED: WATER FOR INJECTION,STERILE 0 ML ONE (18:10)
[2017-05-24] MEDS: FIBERSOURCE HN 1,000 ML BOTTLE GT PRN (19:28)
--- NOTE | 2017-05-24 19:33 | NUR ---
PT RCVD. ON [facility] VENT WITH NOTED SETTINGS. VENT ALARM WORKING AND AUDIBLE, VENT PLUGGED INTO RED OUTLET. TRACH SECURE IN AND IN PROPER POSITION, CUFF CHECKED C4 PLANNER. SXN SMALL AMOUNT OF WHITE THICK SECRETIONS. BILATERAL BS NOTED. NO RESPIRATORY DISTRESS NOTED AT THIS TIME. AMBU BAG AT [facility], WILL CONTINUE TO MONITOR THE PATIENT.
[2017-05-24 20:00] VITALS: BP 101/52
--- NOTE | 2017-05-24 20:00 | NUR ---
NURSE ORTHOPEDIC NOTE PT IN BED ALERT, NO VERBAL, TRACH/VENT TOLERATING THE SETTINGS WELL. SUCTION HIM NEEDED. NO DISTRESS OR DISCOMFORT NOTED. NO S/S OF PAIN NOTED. GT FEEDING FIBERSOURCE INFUSING WELL AT 55 ML/HR, 0 ML RESIDUAL NOTED. PT IN ISOLATION FOR VRE + FOR WOUND, ISOLATION PRECAUTIONS TAKEN. JUAN A WITH PICC LINE INTACT AND PATENT. REPOSITION HIM Q2H, KEPT HIM DRY AND CLEAN. ALL NEEDS ATTENDED. SIDE RAILS UP X 3 AND CALL LIGHT WITHIN REACH. VSS. CONTINUE TO MONITOR HIM.
[2017-05-25] VITALS: BP 98/50
[2017-05-25] MEDS: ACETYLCYSTEINE 10% SOLN 400 MG/4 ML VIAL NEB SCH ×4 (00:30→23:01)
[2017-05-25] MEDS: IPRATROPIUM NEB FS 0.5 MG/2.5 ML AMPUL.NEB NEB SCH ×4 (00:31→20:26)
[2017-05-25] MEDS: ALBUTEROL FS 2.5 MG/3 ML VIAL.NEB NEB SCH ×4 (00:31→20:26)
[2017-05-25 04:00] VITALS: BP 100/46
[2017-05-25] MEDS: LEVETIRACETAM (500MG) 1,000 MG in IV NS 0.9% 100 ML IV SCH (04:32)
[2017-05-25] MEDS: AZTREONAM 1 G in IV NS 0.9% 100 ML IV SCH ×3 (05:12→21:21)
--- NOTE | 2017-05-25 06:27 | NUR ---
MS RN NOTE NO CHANGE IN CONDITION. PT REMAIN NON VERBAL, TOLERATING VENT SETTINGS. NO DISTRESS OR DISCOMFORT NOTED. NO S/S OF PAIN NOTED. IV SITE INTACT AND PATENT, NO S/S OF INFILTRATION NOTED. F/C INTACT AND PATENT DRAINING YELLOWISH COLOR URINE. REPOSITION HIM Q2H. KEPT HIM DRY AND CLEAN. SIDE RAILS UP X 2 AND CALL LIGHT WITHIN REACH. WILL ENDORSE TO DAY SHIFT NURSE FOR CONTINUE TO CARE.
--- NOTE | 2017-05-25 06:29 | NUR ---
SENIOR BIOSTATISTICIAN NOTE ON TELE SR HR 95.
--- NOTE | 2017-05-25 06:40 | NUR ---
HOG OPERATOR NOTE CONSENT OBTAINED FROM DTR SUNG SAWYER FOR DEBRIDEMENT PROCEDURE.
[2017-05-25] MEDS ORDERED: SILVER NITRATE APPLICATOR 1 EA BOX TP ONE (07:30)
--- NOTE | 2017-05-25 07:38 | NUR ---
CUTTER GAS NOTES PT RECEIVED ON BED VENT TRACH DEPENDENT, NON VERBAL. NO SOB NOTED TOLERATING VENT SETTINGS WELL. GTUBE FEEDING RUNNING AT 55ML/HR NO RESIDUAL. JUAN A PICC LINE DRESSING DRY AND INTACT. SR ON THE TELE MONITOR HR IN THE 90S. BED LOCKED AND IN LOWEST POSITION, CALL LIGHT WITHIN EASY REACH. WILL CONTINUE TO MONITOR.
[2017-05-25 08:00] VITALS: BP 103/56
--- NOTE | 2017-05-25 08:00 | NUR ---
LEGAL WORD PROCESSOR NOTE MARIE FOUNTAIN AT BEDSIDE. WOUND DEBRIDEMENT COMPLETED PT TOLERATED PROCEDURE WELL.
[2017-05-25] MEDS: ACETAMINOPHEN 650 MG/20.3 ML UDC GT SCH ×2 (08:32→21:21)
[2017-05-25] MEDS: ASCORBIC ACID SYRUP 500 MG/5 ML UDC GT SCH (08:32)
[2017-05-25] MEDS: PROSOURCE / PROSTAT (PYXIS) 30 ML UDC GT SCH ×2 (08:32→16:31)
[2017-05-25] MEDS: FUROSEMIDE 20 MG TABLET GT SCH ×2 (08:34→16:24)
[2017-05-25] MEDS: MIDODRINE HCL (5MG) 5 MG TABLET GT SCH ×3 (08:34→16:25)
[2017-05-25] MEDS: PANTOPRAZOLE 40 MG/PACK PACK NG SCH (08:34)
[2017-05-25] MEDS: ATORVASTATIN 40 MG TABLET PO SCH (08:34)
[2017-05-25] MEDS: SENNOSIDES 8.6 MG TABLET GT SCH (08:34)
[2017-05-25] MEDS: METOPROLOL TARTRATE 25 MG TABLET GT SCH ×2 (08:34→16:25)
[2017-05-25] MEDS: HEPARIN SODIUM, PORCINE 5000 UNITS/1 ML VIAL SQ SCH ×2 (08:37→16:30)
--- NOTE | 2017-05-25 09:17 | NUR ---
SOLE EDGE INKER MACHINE NOTE DR. ROA AT BEDSIDE SPOKE ABOUT HOW PT IS STILL HAVING JERKING MOTION, PER MD NOT RELATED TO SEIZURES. MD Contreras/Nahed GLOVER.
[2017-05-25] MEDS: NEOMY SULF/BACITRAC ZN/POLY 15 GM TUBE TP SCH (09:27)
[2017-05-25] MEDS: HYDROGEL DRESSING 90 GM TUBE TP SCH (09:27)
[2017-05-25] MEDS: Z GUARD REMEDY 4 OZ OINT TP PRN (09:28)
[2017-05-25] MEDS: CLOPIDOGREL BISULFATE 75 MG TABLET GT SCH (09:31)
--- NOTE | 2017-05-25 09:54 | NUR ---
RECRUITING TEAM LEAD NOTE PER АЛЕКСАНДР SALAZAR OK TO START TX TOMORROW WITH AGUSTIN LA ,ORDER CARRIED OUT
[2017-05-25 12:00] VITALS: BP 108/55
[2017-05-25] MEDS: LEVOTHYROXINE SODIUM 100 MCG TABLET GT SCH (12:05)
[2017-05-25] MEDS: FIBERSOURCE HN 1,000 ML BOTTLE GT PRN (12:14)
[2017-05-25] MEDS: ACETAMINOPHEN 650 MG/20.3 ML UDC GT PRN (12:15)
--- NOTE | 2017-05-25 12:30 | NUR ---
FILM MOUNTER NOTES PT HAS 100.7 FEVER PRN TYLENOL ADMINISTERED, COOLING MEASURES APPLIED. WILL CONTINUE TO MONITOR. Addendum: 05/25/17 at 1317 by JUD GARG RN DR JLUIS GOTTLIEB.
--- NOTE | 2017-05-25 13:43 | NUR ---
HOSPITALITY COORDINATOR NOTE TEMP 100.5, DR BAZZI NOTIFIED. PER DR BAZZI NO MORE TYLENOL TO BE GIVEN FOR FEVERS. COOLING MEASURES APPLIED. FAMILY AT BEDSIDE. DR. BAZZI AWARE OF BLOOD CULTURE RESULTS FROM 05/19, STATED TO CONTINUE TO MONITOR.
[2017-05-25 16:00] VITALS: BP 113/59
--- NOTE | 2017-05-25 19:00 | NUR ---
RN NOTES PT RESTING COMFORTABLY IN BED, TOLERATING VENT SETTINGS, NO SOB NOTED. GTUBE FEEDING RUNNING, TOLERATING WELL. NO CHANGES NOTED AT THIS TIME. BED LOCKED AND IN LOWEST POSITION, SIDE RAILS UPX3, CALL LIGHT WITHIN REACH.
[2017-05-25 20:00] VITALS: BP 108/54
--- NOTE | 2017-05-25 20:00 | NUR ---
BEER MAKER NOTE PT IN BED ASLEEP, AROUSABLE. NON VERBAL. ON VENT/TRACH TOLERATING THE SETTINGS WELL. KEPT HOB ELEVATED. NO DISTRESS OR DISCOMFORT NOTED. NO S/S OF PAIN NOTED. ON TELE SR HR 98. F/C INTACT AND PATENT DRAINING YELLOWISH COLOR URINE. GTF FIBERSOURCE INFUSING WELL, 0 ML RESIDUAL NOTED. DRESSING ON SACRUM DECUB INTACT, DRY AND CLEAN. REPOSITION HIM Q2H. KEPT HIM DRY AND CLEAN. ALL NEEDS ATTENDED. VSS. CONTINUE TO MONITOR HIM.
[2017-05-25] MEDS ORDERED: LEVETIRACETAM (250 MG) 250 MG TABLET PO SCH (21:00)
[2017-05-26] VITALS (7 sets, daily range): BP systolic 98–110; BP diastolic 45–61
[2017-05-26] MEDS: ALBUTEROL FS 2.5 MG/3 ML VIAL.NEB NEB SCH ×4 (02:11→20:00)
[2017-05-26] MEDS: IPRATROPIUM NEB FS 0.5 MG/2.5 ML AMPUL.NEB NEB SCH ×4 (02:11→20:00)
[2017-05-26] MEDS: AZTREONAM 1 G in IV NS 0.9% 100 ML IV SCH ×2 (05:07→12:10)
--- NOTE | 2017-05-26 08:00 | NUR ---
RN ACUTE CARE NOTE PT IN BED ASLEEP. NON VERBAL. ON VENT/TRACH TOLERATING THE SETTINGS WELL. KEPT HOB ELEVATED. NO DISTRESS OR DISCOMFORT NOTED. NO S/S OF PAIN NOTED. ON TELE ST 104, F/C INTACT AND PATENT DRAINING YELLOWISH COLOR URINE. GTF FIBERSOURCE INFUSING WELL, 0 ML RESIDUAL NOTED. DRESSING ON SACRUM DECUB INTACT, DRY AND CLEAN. REPOSITION HIM Q2H. KEPT HIM DRY AND CLEAN. ALL NEEDS ATTENDED. VSS. CONTINUE TO MONITOR CLOSELY
[2017-05-26] MEDS: ACETYLCYSTEINE 10% SOLN 400 MG/4 ML VIAL NEB SCH ×3 (08:09→23:40)
[2017-05-26] MEDS: METOPROLOL TARTRATE 25 MG TABLET GT SCH ×2 (09:00→16:15)
[2017-05-26] MEDS: ASCORBIC ACID SYRUP 500 MG/5 ML UDC GT SCH (09:30)
[2017-05-26] MEDS: ACETAMINOPHEN 650 MG/20.3 ML UDC GT SCH ×2 (09:30→21:09)
[2017-05-26] MEDS: FUROSEMIDE 20 MG TABLET GT SCH ×2 (09:31→16:12)
[2017-05-26] MEDS: ATORVASTATIN 40 MG TABLET PO SCH (09:31)
[2017-05-26] MEDS: MIDODRINE HCL (5MG) 5 MG TABLET GT SCH ×3 (09:31→16:11)
[2017-05-26] MEDS: SENNOSIDES 8.6 MG TABLET GT SCH (09:32)
[2017-05-26] MEDS: PANTOPRAZOLE 40 MG/PACK PACK NG SCH (09:32)
[2017-05-26] MEDS: HEPARIN SODIUM, PORCINE 5000 UNITS/1 ML VIAL SQ SCH ×2 (09:33→16:12)
[2017-05-26] MEDS: DAKINS QUARTER STRENGTH (0.125%) 480 ML BOTTLE TOP SCH (09:34)
[2017-05-26] MEDS: PROSOURCE / PROSTAT (PYXIS) 30 ML UDC GT SCH ×2 (09:34→16:13)
[2017-05-26] MEDS: NEOMY SULF/BACITRAC ZN/POLY 15 GM TUBE TP SCH (09:35)
[2017-05-26] MEDS: HYDROGEL DRESSING 90 GM TUBE TP SCH (09:35)
[2017-05-26] MEDS: FIBERSOURCE HN 1,000 ML BOTTLE GT PRN (09:37)
[2017-05-26] MEDS: CLOPIDOGREL BISULFATE 75 MG TABLET GT SCH (09:39)
--- NOTE | 2017-05-26 11:31 | NUR ---
TUBE MAN NOTE FAMILY AT BEDSIDE ,ALL NEEDS ATTENDED
[2017-05-26] MEDS: LEVOTHYROXINE SODIUM 100 MCG TABLET GT SCH (12:10)
--- NOTE | 2017-05-26 13:53 | NUR ---
CODE MACHINE OPERATORKOKI BAZZI AT BEDSIDE AWARE THAT T100.4 EARLIER ,NO TYLENOL GIVEN PER DR BAZZI REQUEST, COOLING MEASURE PROVIDED Addendum: 05/26/17 at 1356 by HEIDI RECINOS RN DR BAZZI NOTIFIED THAT BP EARLIER 98/53 HR 104 STATED OK TO D\C ATB , CONT ONLY G TUBE FEEDING
--- NOTE | 2017-05-26 17:00 | NUR ---
telephone instrument supervisor note noted sat 77% rt at beside abg done per dr ernst order , .r peleg at nursing station ok to order no peep on vent setting and stat chest xray
--- NOTE | 2017-05-26 17:45 | NUR ---
teletype clerk note at bedside refusing to do chest x ray stated no more aggressive tx ,patient on dnr\dni status
[2017-05-26 17:46] LABS: ABG BASE EXCESS 1.7 mmol/L; ABG PCO2 34.9 mmHg (35.0-45.0); ABG PH 7.475 (7.350-7.450); AaDO2 373.1 mmHg; COHb 0.1 % (0.5-1.5); O2Hb 97.9 % (94.0-97.0); SITE, ABG Right Radial; VENT MODE, BG AC 16 500 100%
--- NOTE | 2017-05-26 18:00 | NUR ---
TIRE BUFFER NOTE RECHECK T 99.5,WILL MONITOR CLOSELY
--- NOTE | 2017-05-26 18:24 | NUR ---
ARCHIVAL RECORDS CLERK NOTE O2 100% ON FIO2 100% SETTING WILL INFORM DR VANEGAS
--- NOTE | 2017-05-26 18:48 | NUR ---
CONDUCTOR AND ENGINEER NOTE PER DR VANEGAS OK TO TRANSFER TO JULIANN ON 100% VENT SETTING ,DR VANEGAS AWARE , CALLED TO DR BAZZI , LEFT A MESSAGE
--- NOTE | 2017-05-26 19:15 | NUR ---
RN INITIAL NOTES RECEIVED PATIENT IN BED, NON-VERBAL, RESTING COMFORTABLY AND EASILY AROUSABLE WITH VERBAL AND TACTILE STIMULI. PATIENT OBSERVED TO BE LETHARGIC. BREATHING IS NOTED TO BE EVEN AND UNLABORED AT THIS TIME. CURRENTLY AT 100% FIO2 ON VENT, SATURATION AT 99%. PATIENT IS SR ON TELE WITH HR OF 96. GTF INFUSING WELL, NO GASTRIC RESIDUAL NOTED. JUAN A PICC LINE, FLUSHED, KEPT PATENT, ON SL. F/C INTACT AND DRAINING WELL WITH CLEAR, YELLOW URINE. PATIENT REPOSITIONED FOR SAFETY AND COMFORT. NEEDS ANTICIPATED AND MET. SAFETY AND COMFORT ENSURED. BED IN LOW AND LOCKED POSITION. WILL MONITOR CLOSELY.
--- NOTE | 2017-05-26 22:00 | NUR ---
RN NOTES PATIENT PROVIDED WITH COOLING MEASURES, BED BATH RENDERED AND WOUND TREATMENT GIVEN ORDERED. PATIENT'S NEEDS ANTICIPATED AND MET. SAFETY AND COMFORT ENSURED. RECHECKED PATIENT'S TEMP, CURRENTLY AT 98.9.
[2017-05-27] VITALS: BP 92/53
--- NOTE | 2017-05-27 00:36 | NUR ---
RN NOTES PATIENT IN BED SLEEPING COMFORTABLY. PATIENT CONTINUOUS ON 100% FIO2 ON VENT. PATIENT'S SATURATION KEPT AT 96-98%. PATIENT WITH NO DISTRESS. REMAINS SR WITH HR 77 ON TELE. ON CLOSE MONITORING. PATIENT'S AFEBRILE AT 97.4.
[2017-05-27] MEDS: IPRATROPIUM NEB FS 0.5 MG/2.5 ML AMPUL.NEB NEB SCH ×4 (02:09→19:56)
[2017-05-27] MEDS: ALBUTEROL FS 2.5 MG/3 ML VIAL.NEB NEB SCH ×4 (02:09→19:56)
[2017-05-27] MEDS: FIBERSOURCE HN 1,000 ML BOTTLE GT PRN (03:23)
[2017-05-27 04:00] VITALS: BP 97/48
--- NOTE | 2017-05-27 07:01 | NUR ---
RN CLOSING NOTES PATIENT AFEBRILE AT THIS TIME, 98.7. STILL AT 100% FIO2 ON VENT, PATIENT'S SATURATION KEPT AT 94-98%. AIRWAY SUCTIONED NEEDED. PATIENT IS EASILY AROUSABLE WITH VERBAL AND TACTILE STIMULI. REMAINS SR AT 87. GTF INFUSING ORDERED, NO GASTRIC RESIDUAL. F/C INTACT AND DRAINING WELL VIA GRAVITY. JUAN A PICC LINE ON SL, FLUSHED AND KEPT PATENT. NEEDS ANTICIPATED AND MET. SAFETY AND COMFORT ENSURED. WILL ENDORSE ACCORDINGLY FOR CONTINUITY OF CARE.
[2017-05-27] MEDS: ACETYLCYSTEINE 10% SOLN 400 MG/4 ML VIAL NEB SCH ×3 (07:52→23:07)
[2017-05-27 08:00] VITALS: BP 93/47
[2017-05-27] MEDS: PANTOPRAZOLE 40 MG/PACK PACK NG SCH (08:39)
[2017-05-27] MEDS: FUROSEMIDE 20 MG TABLET GT SCH ×2 (08:39→16:57)
[2017-05-27] MEDS: CLOPIDOGREL BISULFATE 75 MG TABLET GT SCH (08:39)
[2017-05-27] MEDS: ASCORBIC ACID SYRUP 500 MG/5 ML UDC GT SCH (08:39)
[2017-05-27] MEDS: SENNOSIDES 8.6 MG TABLET GT SCH (08:40)
[2017-05-27] MEDS: HYDROGEL DRESSING 90 GM TUBE TP SCH (08:40)
[2017-05-27] MEDS: DAKINS QUARTER STRENGTH (0.125%) 480 ML BOTTLE TOP SCH (08:40)
[2017-05-27] MEDS: ATORVASTATIN 40 MG TABLET PO SCH (08:40)
[2017-05-27] MEDS: NEOMY SULF/BACITRAC ZN/POLY 15 GM TUBE TP SCH (08:41)
[2017-05-27] MEDS: METOPROLOL TARTRATE 25 MG TABLET GT SCH ×2 (08:44→16:57)
[2017-05-27] MEDS: MIDODRINE HCL (5MG) 5 MG TABLET GT SCH ×3 (08:44→16:57)
[2017-05-27] MEDS: ACETAMINOPHEN 650 MG/20.3 ML UDC GT SCH ×2 (08:45→21:39)
[2017-05-27] MEDS: PROSOURCE / PROSTAT (PYXIS) 30 ML UDC GT SCH ×2 (08:46→16:59)
[2017-05-27] MEDS ORDERED: LORAZEPAM INJ 2 MG/ML VIAL IV ONE (09:00)
--- NOTE | 2017-05-27 09:00 | NUR ---
RN NOTES DR ROA AT BEDSIDE, PT WAS SEEN AND EVALUATED. AND NIECE AT BEDSIDE, AND THEY ARE CONCERNED ABOUT PT TWITCHING, DR ROA GAVE NEW ORDER TO GIVE ATIVAN 2MG IV X1, ORDERS READ BACK NOTED AND CARRIED OUT.
--- NOTE | 2017-05-27 09:01 | NUR ---
RN NOTES LORAZEPAM 2MG IV X1 GIVEN. DR ROA AT BEDSIDE, MD ALSO AWARE PT'S BP IS ON THE LOW SIDE, PT'S SBP 90'S. WILL CONT TO MONITOR
[2017-05-27 12:00] VITALS: BP 98/47
[2017-05-27] MEDS: LEVOTHYROXINE SODIUM 100 MCG TABLET GT SCH (13:40)
[2017-05-27 16:00] VITALS: BP 111/59
--- NOTE | 2017-05-27 16:23 | NUR ---
RN NOTES PT NOTED FEBRILE, TEMP 102.6, COOLING MEASURES PROVIDED. COOLING BLANKET IN PLACE. WILL CONT TO MONITOR
--- NOTE | 2017-05-27 18:26 | NUR ---
RN NOTES PATIENT IN BED, NON-VERBAL OPENS EYES AT TIMES, RESTING COMFORTABLY. TRACHE MIDLINE, ON [facility] VENT SETTINGS: AC16 TV 500 FIO2 50% PEEP 5, SATURATING AT 100%. SUCTIONED FOR AIRWAY CLEARANCE. PATIENT IS SR ON TELE WITH HR OF 90. GTF INFUSING WELL, FIBERSOURCE@55ML/HR, NO GASTRIC RESIDUAL NOTED. JUAN A PICC LINE, HL. FLUSHED WITH NS, PATENT. F/C INTACT AND DRAINING WELL WITH YELLOW URINE CONNECTED TO CLOSED SYSTEM. PT HAS COOLING BLANKET, CURRENT TEMP 99.8. PATIENT REPOSITIONED FOR SAFETY AND COMFORT. KEPT CLEAN DRY AND COMFORTABLE. NEEDS ANTICIPATED AND MET. SAFETY AND COMFORT ENSURED. BED IN LOW AND LOCKED POSITION. WILL MONITOR CLOSELY.
[2017-05-27] MEDS: clonazePAM 0.5 MG TABLET GT SCH (18:38)
[2017-05-27 20:00] VITALS: BP 104/55
--- NOTE | 2017-05-27 22:15 | NUR ---
RN NOTE RECEIVED REPORT FROM SAIRA ISBELL RN FOR MINOR
[2017-05-28] VITALS: BP_SYST 104; BP_SYST 108; BP_DIAS 51; BP_DIAS 55
[2017-05-28] MEDS: IPRATROPIUM NEB FS 0.5 MG/2.5 ML AMPUL.NEB NEB SCH ×4 (02:08→19:29)
[2017-05-28] MEDS: ALBUTEROL FS 2.5 MG/3 ML VIAL.NEB NEB SCH ×4 (02:08→19:29)
[2017-05-28 04:00] VITALS: BP 99/55
[2017-05-28 06:28] LABS: BASOPHILS # (AUTO) 0.1 /CMM (0.0-0.2); BASOPHILS % (AUTO) 0.7 % (0.0-2.0); EOSINOPHILS # (AUTO) 0.3 /CMM (0.0-0.7); EOSINOPHILS % (AUTO) 3.4 % (0.0-6.0); HEMATOCRIT 27 % (39-51); LYMPHOCYTES # (AUTO) 0.9 /CMM (0.8-4.8); LYMPHOCYTES % (AUTO) 10.1 % (20.0-44.0); MEAN CORPUSCULAR HEMOGLOBIN 30 PG (26.0-33.0); MEAN CORPUSCULAR HGB CONC 34 g/dl (31.0-36.0); MEAN CORPUSCULAR VOLUME 89 fL (80-96); MONOCYTES # (AUTO) 0.9 /CMM (0.1-1.30); MONOCYTES % (AUTO) 10.1 % (2.0-12.0); NEUTROPHILS # (AUTO) 6.6 /CMM (1.8-8.9); NEUTROPHILS % (AUTO) 75.7 % (43.0-81.0); PLATELET COUNT (AUTO) 358 /CMM (150-450); RDW COEFFICIENT OF VARIATION 16.8 (11.5-15.0); RED BLOOD CELL COUNT(AUTO) 2.97 MIL/uL (4.5-6.0); WHITE BLOOD COUNT (AUTO) 8.7 K/uL (4.3-11.0)
[2017-05-28 06:37] LABS: CALCIUM, SERUM 8.2 mg/dL (8.5-10.1); CARBON DIOXIDE 27 mmol/L (21-32); CHLORIDE 104 mmol/L (98-107); CREATININE 0.7 mg/dL (0.6-1.3); GLUCOSE 103 mg/dL (74-106); SODIUM SERUM 140 mmol/L (136-145); UREA NITROGEN, BLOOD 33 mg/dL (7-18)
--- NOTE | 2017-05-28 07:03 | NUR ---
RN CLOSING NOTE PT REMAINS IN NO ACUTE DISTRESS IN BED. PT DID NOT HAVE ANY SIGNIFICANT CHANGE IN CONDITION DURING SHIFT. PT TOLERATED VENT SETTING WELL. ALL NEEDS MET ALL ORDERS CARRIED OUT. WILL ENDORSE REPORT TO AM RN FOR CONTINUITY OF CARE.
[2017-05-28] MEDS: ACETYLCYSTEINE 10% SOLN 400 MG/4 ML VIAL NEB SCH ×2 (07:48→14:31)
[2017-05-28 08:00] VITALS: BP 91/35
[2017-05-28] MEDS: METOPROLOL TARTRATE 25 MG TABLET GT SCH ×2 (09:00→16:36)
[2017-05-28] MEDS: PROSOURCE / PROSTAT (PYXIS) 30 ML UDC GT SCH ×2 (09:54→16:35)
[2017-05-28] MEDS: SENNOSIDES 8.6 MG TABLET GT SCH (09:55)
[2017-05-28] MEDS: ASCORBIC ACID SYRUP 500 MG/5 ML UDC GT SCH (09:55)
[2017-05-28] MEDS: ACETAMINOPHEN 650 MG/20.3 ML UDC GT SCH ×2 (09:55→22:14)
[2017-05-28] MEDS: clonazePAM 0.5 MG TABLET GT SCH ×2 (09:56→16:35)
[2017-05-28] MEDS: FUROSEMIDE 20 MG TABLET GT SCH ×2 (09:56→16:35)
[2017-05-28] MEDS: MIDODRINE HCL (5MG) 5 MG TABLET GT SCH ×3 (09:56→16:35)
[2017-05-28] MEDS: PANTOPRAZOLE 40 MG/PACK PACK NG SCH (09:57)
[2017-05-28] MEDS: CLOPIDOGREL BISULFATE 75 MG TABLET GT SCH (09:57)
[2017-05-28] MEDS: ATORVASTATIN 40 MG TABLET PO SCH (09:57)
[2017-05-28] MEDS: Z GUARD REMEDY 4 OZ OINT TP PRN (09:58)
[2017-05-28] MEDS: HYDROGEL DRESSING 90 GM TUBE TP SCH (10:00)
[2017-05-28] MEDS: DAKINS QUARTER STRENGTH (0.125%) 480 ML BOTTLE TOP SCH (10:01)
[2017-05-28] MEDS: NEOMY SULF/BACITRAC ZN/POLY 15 GM TUBE TP SCH (10:02)
[2017-05-28 12:00] VITALS: BP 90/40
[2017-05-28] MEDS: LEVOTHYROXINE SODIUM 100 MCG TABLET GT SCH (12:37)
[2017-05-28] MEDS: MEROPENEM 500 MG in IV NS 0.9% 50 ML IV SCH ×2 (12:37→22:16)
[2017-05-28 16:00] VITALS: BP 95/57
[2017-05-28 20:00] VITALS: BP 104/48
[2017-05-29] VITALS (7 sets, daily range): BP systolic 84–122; BP diastolic 37–64
[2017-05-29] MEDS: IPRATROPIUM NEB FS 0.5 MG/2.5 ML AMPUL.NEB NEB SCH ×4 (01:38→19:50)
[2017-05-29] MEDS: ALBUTEROL FS 2.5 MG/3 ML VIAL.NEB NEB SCH ×4 (01:38→19:50)
[2017-05-29] MEDS: ACETYLCYSTEINE 10% SOLN 400 MG/4 ML VIAL NEB SCH ×4 (01:39→23:30)
[2017-05-29] MEDS: MEROPENEM 500 MG in IV NS 0.9% 50 ML IV SCH ×2 (05:25→13:43)
[2017-05-29] MEDS: FIBERSOURCE HN 1,000 ML BOTTLE GT PRN (05:27)
[2017-05-29] MEDS: METOPROLOL TARTRATE 25 MG TABLET GT SCH ×2 (09:00→17:00)
[2017-05-29] MEDS: SENNOSIDES 8.6 MG TABLET GT SCH (10:13)
[2017-05-29] MEDS: clonazePAM 0.5 MG TABLET GT SCH ×2 (10:13→18:35)
[2017-05-29] MEDS: ATORVASTATIN 40 MG TABLET PO SCH (10:13)
[2017-05-29] MEDS: MIDODRINE HCL (5MG) 5 MG TABLET GT SCH ×3 (10:13→18:35)
[2017-05-29] MEDS: ACETAMINOPHEN 650 MG/20.3 ML UDC GT SCH ×2 (10:13→21:40)
[2017-05-29] MEDS: FUROSEMIDE 20 MG TABLET GT SCH (10:13)
[2017-05-29] MEDS: PANTOPRAZOLE 40 MG/PACK PACK NG SCH (10:13)
[2017-05-29] MEDS: ASCORBIC ACID SYRUP 500 MG/5 ML UDC GT SCH (10:14)
[2017-05-29] MEDS: CLOPIDOGREL BISULFATE 75 MG TABLET GT SCH (10:14)
[2017-05-29] MEDS: NEOMY SULF/BACITRAC ZN/POLY 15 GM TUBE TP SCH (10:15)
[2017-05-29] MEDS: HYDROGEL DRESSING 90 GM TUBE TP SCH (10:16)
[2017-05-29] MEDS: PROSOURCE / PROSTAT (PYXIS) 30 ML UDC GT SCH ×2 (10:16→18:35)
[2017-05-29] MEDS: DAKINS QUARTER STRENGTH (0.125%) 480 ML BOTTLE TOP SCH (10:17)
[2017-05-29] MEDS ORDERED: IV NS 0.9% 500 ML BAG IV ONE (13:00)
[2017-05-29] MEDS ORDERED: IV NS 0.9% 1,000 ML IV PRN (13:30)
[2017-05-29] MEDS: LEVOTHYROXINE SODIUM 100 MCG TABLET GT SCH (13:43)
--- NOTE | 2017-05-29 16:00 | NUR ---
RN NOTE BLADDER SCANNER SHOWED MAX 20 ML OF URINE RESIDUAL. FELIBERTO LCONTINUE TO MONITOR URINE OUTPUT CLOSELY.
--- NOTE | 2017-05-29 16:19 | NUR ---
RN NOTE NOTIFIED DR PLASENCIA REGARDING BP POST NS 500ML BOLUS, 117/57 MMHG, AND CXR RESULTS, OKAYED TO D/C IVF.
[2017-05-29] MEDS ORDERED: COLISTIMETHATE SODIUM 150 MG VIAL ONE (21:06)
[2017-05-29] MEDS: HYDROCODONE/APAP 5/325MG 1 EACH TABLET GT PRN (21:40)
[2017-05-29] MEDS: COLISTIMETHATE SODIUM 100 MG in IV NS 0.9% 50 ML IV SCH (21:45)
[2017-05-29] MEDS: LINEZOLID RTU BAG 600 MG in PREMIX 1 EA IV SCH (22:11)
[2017-05-30] VITALS: BP 102/55
[2017-05-30] MEDS: IPRATROPIUM NEB FS 0.5 MG/2.5 ML AMPUL.NEB NEB SCH ×4 (01:29→20:15)
[2017-05-30] MEDS: ALBUTEROL FS 2.5 MG/3 ML VIAL.NEB NEB SCH ×4 (01:29→20:15)
[2017-05-30 04:00] VITALS: BP 108/56
[2017-05-30] MEDS: FIBERSOURCE HN 1,000 ML BOTTLE GT PRN (05:36)
[2017-05-30 06:44] LABS: BASOPHILS % (AUTO) 0.5 % (0.0-2.0); EOSINOPHILS # (AUTO) 0.2 /CMM (0.0-0.7); EOSINOPHILS % (AUTO) 6.1 % (0.0-6.0); HEMATOCRIT 25 % (39-51); HEMOGLOBIN 8.6 g/dL (13.5-17.5); LYMPHOCYTES % (AUTO) 25.7 % (20.0-44.0); MEAN CORPUSCULAR HEMOGLOBIN 31 PG (26.0-33.0); MEAN CORPUSCULAR HGB CONC 34 g/dl (31.0-36.0); MEAN CORPUSCULAR VOLUME 89 fL (80-96); MONOCYTES # (AUTO) 0.5 /CMM (0.1-1.30); NEUTROPHILS # (AUTO) 2.1 /CMM (1.8-8.9); NEUTROPHILS % (AUTO) 54.7 % (43.0-81.0); PLATELET COUNT (AUTO) 267 /CMM (150-450); RDW COEFFICIENT OF VARIATION 16.9 (11.5-15.0); RED BLOOD CELL COUNT(AUTO) 2.81 MIL/uL (4.5-6.0); WHITE BLOOD COUNT (AUTO) 3.9 K/uL (4.3-11.0)
[2017-05-30 06:56] LABS: ALANINE AMINOTRANSFERASE 83 U/L (12-78); ALBUMIN 1.5 g/dL (3.4-5.0); ALKALINE PHOSPHATASE 164 U/L (46-116); ASPARTATE AMINOTRANSFERASE 78 U/L (15-37); BILIRUBIN,TOTAL 0.2 mg/dL (0.2-1.0); CALCIUM, SERUM 8.4 mg/dL (8.5-10.1); CARBON DIOXIDE 29 mmol/L (21-32); CHLORIDE 105 mmol/L (98-107); CREATININE 0.6 mg/dL (0.6-1.3); GLUCOSE 103 mg/dL (74-106); MAGNESIUM 2.2 mg/dL (1.8-2.4); PHOSPHORUS 3.5 mg/dL (2.5-4.9); POTASSIUM 3.9 mmol/L (3.5-5.1); SODIUM SERUM 140 mmol/L (136-145); TOTAL PROTEIN, SERUM 7.6 g/dL (6.4-8.2); UREA NITROGEN, BLOOD 38 mg/dL (7-18)
[2017-05-30] MEDS: ACETYLCYSTEINE 10% SOLN 400 MG/4 ML VIAL NEB SCH ×3 (07:22→23:47)
--- NOTE | 2017-05-30 07:30 | NUR ---
RN NOTES RECEIVED PT RESTING IN BED, OBTUNDED, TRACHE MIDLINE ON [facility] VENT SETTINGS PRESCRIBED SHILEY 6 AC 16 TV 500 FIO2 40% PEEP 0. SUCTIONED FOR AIRWAY CLEARANCE. PATIENT AFEBRILE AT THIS TIME, 98.6. ST ON TELE MONITOR HR 108BPM. GTF FIBERSOURCE@55ML/HR INFUSING WELL, NO RESIDUAL NOTED. F/C INTACT AND DRAINING WELL VIA GRAVITY. JUAN A PICC LINE ON SL, FLUSHED AND KEPT PATENT. NEEDS ANTICIPATED. SAFETY AND COMFORT ENSURED. ISOLATION PRECAUTION OBSERVED. WILL CONT TO MONITOR, CALL LIGHT WITHIN REACH.
[2017-05-30 08:00] VITALS: BP 103/56
[2017-05-30 08:28] LABS: THYROID STIMULATING HORMONE 11.859 uIU/mL (0.358-3.74)
[2017-05-30] MEDS ORDERED: DOSE PER PHARMACY (MD SPECIFY MEDICATION) 1 EA XX PRN (09:00)
[2017-05-30] MEDS: COLISTIMETHATE SODIUM 100 MG in IV NS 0.9% 50 ML IV SCH ×2 (09:24→20:39)
[2017-05-30] MEDS: ASCORBIC ACID SYRUP 500 MG/5 ML UDC GT SCH (09:36)
[2017-05-30] MEDS: ACETAMINOPHEN 650 MG/20.3 ML UDC GT SCH ×2 (09:36→20:39)
[2017-05-30] MEDS: PROSOURCE / PROSTAT (PYXIS) 30 ML UDC GT SCH ×2 (09:36→17:57)
[2017-05-30] MEDS: PANTOPRAZOLE 40 MG/PACK PACK NG SCH (09:37)
[2017-05-30] MEDS: MIDODRINE HCL (5MG) 5 MG TABLET GT SCH ×3 (09:37→17:57)
[2017-05-30] MEDS: METOPROLOL TARTRATE 25 MG TABLET GT SCH ×2 (09:37→17:00)
[2017-05-30] MEDS: SENNOSIDES 8.6 MG TABLET GT SCH (09:37)
[2017-05-30] MEDS: ATORVASTATIN 40 MG TABLET PO SCH (09:37)
[2017-05-30] MEDS: clonazePAM 0.5 MG TABLET GT SCH ×2 (09:37→17:57)
[2017-05-30] MEDS: HYDROGEL DRESSING 90 GM TUBE TP SCH (09:37)
[2017-05-30] MEDS: DAKINS QUARTER STRENGTH (0.125%) 480 ML BOTTLE TOP SCH (09:39)
[2017-05-30] MEDS: NEOMY SULF/BACITRAC ZN/POLY 15 GM TUBE TP SCH (09:40)
[2017-05-30] MEDS: CLOPIDOGREL BISULFATE 75 MG TABLET GT SCH (09:45)
[2017-05-30] MEDS: LINEZOLID RTU BAG 600 MG in PREMIX 1 EA IV SCH ×2 (10:02→21:54)
[2017-05-30 12:00] VITALS: BP 96/52
--- NOTE | 2017-05-30 12:22 | NUR ---
attempted xray at 1220, unable to turn pt laterally for xray. nurse will speak to MD to consider ct
[2017-05-30] MEDS ORDERED: LEVOTHYROXINE SODIUM 100 MCG TABLET GT SCH (13:00)
[2017-05-30 16:00] VITALS: BP 107/58
--- NOTE | 2017-05-30 19:45 | NUR ---
RN INITIAL NOTE RECEIVED PT IN NO ACUTE DISTRESS IN BED. PT IS OBTUNDED BUT OPENS EYES. PT IS ON MECHANICAL VENT VIA TRACH. TRACH SITE IS CLEAN DRY AND INTACT. PT TOLERATING VENT SETTING WELL. PT IS ON TELE WITH ST ON THE MONITOR. PT HAS F/C THAT IS CLEAN DRY INTACT AND PATENT WITH YELLOW URINE DRAINING. PT HAS GTUBE THAT IS CLEAN DRY INTACT AND PATENT WITH FIBERSOURCE @ 55ML/HR AND TOLERATING WELL. JUAN A PICC LINE THAT IS CLEAN DRY INTACT AND PATENT WITH NS @ TKO. BED IN LOW LOCK POSITION WITH RAILS UP X 2. CALL LIGHT WITHIN REACH AND ALL SAFETY MEASURES ENSURED AND CARRIED OUT. WILL CONTINUE TO MONITOR FOR ANY CHANGES IN CONDITION DURING SHIFT.
[2017-05-30 20:00] VITALS: BP 140/73
[2017-05-31] VITALS: BP 97/48
[2017-05-31] MEDS: ALBUTEROL FS 2.5 MG/3 ML VIAL.NEB NEB SCH ×4 (01:35→19:57)
[2017-05-31] MEDS: IPRATROPIUM NEB FS 0.5 MG/2.5 ML AMPUL.NEB NEB SCH ×4 (01:35→19:57)
[2017-05-31 04:00] VITALS: BP 98/52
--- NOTE | 2017-05-31 06:28 | NUR ---
RN CLOSING NOTE PT REMAINS IN NO ACUTE DISTRESS IN BED. PT DID NOT HAVE ANY SIGNIFICANT CHANGE IN CONDITION DURING SHIFT. PT TOLERATED VENT SETTING WELL. ALL NEEDS MET ALL ORDERS CARRIED OUT. WILL ENDORSE TO AM RN FOR CONTINUITY OF CARE
[2017-05-31 06:39] LABS: BASOPHILS % (AUTO) 0.6 % (0.0-2.0); EOSINOPHILS # (AUTO) 0.2 /CMM (0.0-0.7); EOSINOPHILS % (AUTO) 6.5 % (0.0-6.0); HEMATOCRIT 24 % (39-51); HEMOGLOBIN 8.3 g/dL (13.5-17.5); LYMPHOCYTES # (AUTO) 1.1 /CMM (0.8-4.8); LYMPHOCYTES % (AUTO) 30.8 % (20.0-44.0); MEAN CORPUSCULAR HEMOGLOBIN 30 PG (26.0-33.0); MEAN CORPUSCULAR HGB CONC 34 g/dl (31.0-36.0); MEAN CORPUSCULAR VOLUME 89 fL (80-96); MONOCYTES # (AUTO) 0.5 /CMM (0.1-1.30); MONOCYTES % (AUTO) 13.6 % (2.0-12.0); NEUTROPHILS # (AUTO) 1.7 /CMM (1.8-8.9); NEUTROPHILS % (AUTO) 48.5 % (43.0-81.0); PLATELET COUNT (AUTO) 295 /CMM (150-450); RDW COEFFICIENT OF VARIATION 16.6 (11.5-15.0); RED BLOOD CELL COUNT(AUTO) 2.74 MIL/uL (4.5-6.0); WHITE BLOOD COUNT (AUTO) 3.6 K/uL (4.3-11.0)
[2017-05-31 07:00] LABS: CALCIUM, SERUM 8.1 mg/dL (8.5-10.1); CARBON DIOXIDE 29 mmol/L (21-32); CHLORIDE 106 mmol/L (98-107); CREATININE 0.6 mg/dL (0.6-1.3); GLUCOSE 114 mg/dL (74-106); SODIUM SERUM 142 mmol/L (136-145); UREA NITROGEN, BLOOD 31 mg/dL (7-18)
--- NOTE | 2017-05-31 07:00 | NUR ---
RN NOTE RECEIVED PT ON BED,OBTUNDED , VENT/ TRACH DEPENDENT, TOLERATING CURRENT VENT SETTING WELL. ON TELE WITH ST ON THE MONITOR. JOLLEY DRAINING TO GRAVITY WITH YELLOW URINE , TOLERATING G TUBE FEEDING WITH FIBERSOURCE @ 55ML/HR WELL. JUAN A PICC LINE SITE, CLEAN DRY INTACT AND PATENT WITH NS @ TKO. BED LOCKED AND IN LOWEST POSITION , RAILS UP X 3, . CALL LIGHT WITHIN REACH , WILL CONTINUE TO MONITOR PT CLOSELY AND NOTIFY MD FOR ANY SIGNIFICANT CHANGES
[2017-05-31] MEDS: ACETYLCYSTEINE 10% SOLN 400 MG/4 ML VIAL NEB SCH ×3 (07:16→23:51)
[2017-05-31 08:00] VITALS: BP 105/48
[2017-05-31] MEDS: SENNOSIDES 8.6 MG TABLET GT SCH (08:17)
[2017-05-31] MEDS: COLISTIMETHATE SODIUM 100 MG in IV NS 0.9% 50 ML IV SCH (08:17)
[2017-05-31] MEDS: METOPROLOL TARTRATE 25 MG TABLET GT SCH ×2 (08:18→16:56)
[2017-05-31] MEDS: ATORVASTATIN 40 MG TABLET PO SCH (08:19)
[2017-05-31] MEDS: CLOPIDOGREL BISULFATE 75 MG TABLET GT SCH (08:19)
[2017-05-31] MEDS: ASCORBIC ACID SYRUP 500 MG/5 ML UDC GT SCH (08:19)
[2017-05-31] MEDS: MIDODRINE HCL (5MG) 5 MG TABLET GT SCH ×3 (08:19→16:57)
[2017-05-31] MEDS: clonazePAM 0.5 MG TABLET GT SCH ×2 (08:19→16:55)
[2017-05-31] MEDS: PANTOPRAZOLE 40 MG/PACK PACK NG SCH (08:20)
[2017-05-31] MEDS: NEOMY SULF/BACITRAC ZN/POLY 15 GM TUBE TP SCH (08:22)
[2017-05-31] MEDS: HYDROGEL DRESSING 90 GM TUBE TP SCH (08:22)
[2017-05-31] MEDS: DAKINS QUARTER STRENGTH (0.125%) 480 ML BOTTLE TOP SCH (08:22)
[2017-05-31] MEDS: PROSOURCE / PROSTAT (PYXIS) 30 ML UDC GT SCH ×2 (08:24→16:54)
[2017-05-31] MEDS: ACETAMINOPHEN 650 MG/20.3 ML UDC GT SCH (08:24)
[2017-05-31] MEDS: LINEZOLID RTU BAG 600 MG in PREMIX 1 EA IV SCH (08:25)
[2017-05-31 12:00] VITALS: BP 98/42
--- NOTE | 2017-05-31 12:00 | NUR ---
RN NOTES PT STABLE , PT STABLE , TRACH CARE DONE ,SUPPORTIVE FAMILY AT THE BEDSIDE , CONTINUE TO MONITOR .
[2017-05-31] MEDS: LEVOTHYROXINE SODIUM 125 MCG TABLET GT SCH (12:29)
[2017-05-31] MEDS: ACETAMINOPHEN 650 MG/20.3 ML UDC GT PRN (12:42)
[2017-05-31 16:00] VITALS: BP 111/54
--- NOTE | 2017-05-31 18:57 | NUR ---
RN NOTES TRACH CARE DONE, T=97.6 AT THIS TIME , JOLLEY DRAINING TO GRAVITY WITH YELLOW URINE, R UPPER ARM PICC SITE CDI, TOLERATING TF WELL , NO RESIDUAL NOTED, NO SIGNIFICANT CHANGES NOTED ON THIS SHIFT.
[2017-05-31 20:00] VITALS: BP 106/50
--- NOTE | 2017-05-31 20:00 | NUR ---
RN NOTES RECEIVED PATIENT IN BED AWAKE, NO EYE TRACKING NOTED. NO RESPIRATORY DISTRESS NOTED. BREATHING EVEN AND UNLABORED. GTUBE PATENT AND INTACT, FEEDING WELL TOLERATED. NO RESIDUALS. HOB ELEVATED. ABDOMEN SOFT AND NON TENDER. BOWEL SOUNDS PRESENT IN ALL FOUR QUADRANTS. VENT SETTINGS TOLERATING WELL. SUCTIONED MODERATE AMOUNT OF SEMI LOOSE YELLOWISH SECRETION. KEPT CLEAN AND DRY.
[2017-05-31] MEDS: FIBERSOURCE HN 1,000 ML BOTTLE GT PRN (21:56)
[2017-06-01] VITALS: BP 101/55
[2017-06-01] MEDS: ALBUTEROL FS 2.5 MG/3 ML VIAL.NEB NEB SCH ×4 (01:44→19:43)
[2017-06-01] MEDS: IPRATROPIUM NEB FS 0.5 MG/2.5 ML AMPUL.NEB NEB SCH ×4 (01:44→19:43)
[2017-06-01 04:00] VITALS: BP 98/50
--- NOTE | 2017-06-01 04:00 | NUR ---
RN NOTES NOTED PATIENTS TEMPERATURE AT 100.4, RECTALLY. ORDERED BLOOD CULTURE X 2, UA & C&S, RESPIRATORY CULTURE STAT PER ORDER OF DR RICO. AFTER BLOOD DRAW, TYLENOL GIVEN. WILL CONTINUE TO MONITOR.
[2017-06-01 04:41] LABS: APPEARANCE,URINE CLEAR (CLEAR); COLOR,URINE YELLOW (YELLOW)
[2017-06-01 04:42] LABS: BILIRUBIN,URINE NEGATIVE (NEGATIVE); BLOOD, URINE NEGATIVE Ery/uL (NEGATIVE); KETONES,URINE NEGATIVE (NEGATIVE); LEUKOCYTE ESTERASE ,URINE NEGATIVE (NEGATIVE); NITRITE, URINE NEGATIVE (NEGATIVE); PROTEIN,URINE TRACE mg/dl (NEGATIVE); UGLUCOSE NEGATIVE (NEGATIVE); UROBILINOGEN,URINE 0.2 EU/dL (0.2)
[2017-06-01] MEDS: ACETAMINOPHEN 650 MG/20.3 ML UDC GT PRN (04:48)
[2017-06-01 04:51] LABS: BACTERIA,URINE None seen /HPF (None Seen); RBC,URINE 0-2 /HPF (0-2); SQUAMOUS EPITHELIAL CELL,UR Few /HPF (None Seen); URINE AMORPHOUS URATE Moderate /HPF (None Seen); WBC,URINE 0-2 /HPF (0-3)
--- NOTE | 2017-06-01 07:00 | NUR ---
RN NOTES RECEIVED PATIENT ON BED, OBTUNDENT, VENT/ TRACH DEPENDENT, TRACH CARE DONE, NO DISTRESS NOTED, TOLERATING CURRENT VENT SETTING WELL, GTUBE FEEDING WITH FIBERSOURCE AT 55CC/HR, RUNNING , TOLERATING WELL, NO RESIDUAL NOTED , HOB ELEVATED. ABDOMEN SOFT AND NON TENDER. BOWEL SOUNDS PRESENT IN ALL FOUR QUADRANTS. SR UP x3, CALL LIGHT WITHIN EASY REACH , CONTINUE TO MONITOR PT CLOSELY AND NOTIFY MD FOR ANY SIGNIFICANT CHANGES.
--- NOTE | 2017-06-01 07:23 | NUR ---
RN CLOSING NOTES REMAINS AFEBRILE 98.9 AFTER MEDICATION FROM 100.4. NO PHYSICAL MANIFESTATION OF PAIN OR DISCOMFORT. KEPT CLEAN AND DRY. WILL ENDORSE TO AM SHIFT FOR CONTINUITY OF CARE.
[2017-06-01] MEDS: ACETYLCYSTEINE 10% SOLN 400 MG/4 ML VIAL NEB SCH ×3 (07:33→23:12)
[2017-06-01 08:00] VITALS: BP 107/50
[2017-06-01] MEDS: NEOMY SULF/BACITRAC ZN/POLY 15 GM TUBE TP SCH (08:16)
[2017-06-01] MEDS: HYDROGEL DRESSING 90 GM TUBE TP SCH (08:16)
[2017-06-01] MEDS: DAKINS QUARTER STRENGTH (0.125%) 480 ML BOTTLE TOP SCH (08:17)
[2017-06-01] MEDS: PANTOPRAZOLE 40 MG/PACK PACK NG SCH (08:19)
[2017-06-01] MEDS: SENNOSIDES 8.6 MG TABLET GT SCH (08:19)
[2017-06-01] MEDS: ASCORBIC ACID SYRUP 500 MG/5 ML UDC GT SCH (08:19)
[2017-06-01] MEDS: METOPROLOL TARTRATE 25 MG TABLET GT SCH ×2 (08:20→16:46)
[2017-06-01] MEDS: MIDODRINE HCL (5MG) 5 MG TABLET GT SCH ×3 (08:20→16:46)
[2017-06-01] MEDS: clonazePAM 0.5 MG TABLET GT SCH ×2 (08:21→16:45)
[2017-06-01] MEDS: PROSOURCE / PROSTAT (PYXIS) 30 ML UDC GT SCH ×2 (08:23→16:46)
[2017-06-01 12:00] VITALS: BP 114/52
--- NOTE | 2017-06-01 12:00 | NUR ---
RN NOTES SUPPORTIVE FAMILY AT THE BEDSIDE, TRACH SUCTIONING DONE, CONTINUE TO MONITOR .
[2017-06-01] MEDS: LEVOTHYROXINE SODIUM 125 MCG TABLET GT SCH (13:37)
[2017-06-01 16:00] VITALS: BP 109/57
[2017-06-01] MEDS: FIBERSOURCE HN 1,000 ML BOTTLE GT PRN (16:51)
--- NOTE | 2017-06-01 18:46 | NUR ---
RN NOTES RESPIRATION EVEN AND UNLABORED, TRACH SUCTIONING DONE , JOLLEY DRAINING TO GRAVITY WITH YELLOW CLEAR URINE, TOLERATING TF WELL , NO RESIDUAL NOTED, L UPPER ARM PICC LINE CDI , NO SIGNIFICANT CHANGES NOTED ON THIS SHIFT .
[2017-06-01 20:00] VITALS: BP 108/56
--- NOTE | 2017-06-01 20:00 | NUR ---
RN OPENING NOTES EYES CLOSE, RESTING COMFORTABLY IN BED. NO PHYSICAL MANIFESTATION OF PAIN OR DISCOMFORT. JERKING NOTED. JOLLEY CATH IN PLACE DRAINING CLEAR YELLOW WITH NO FOUL ODOR URINE. GT IN PLACE, NO RESIDUAL NOTED. FEEDING WELL TOLERATED. WILL CONTINUE TO MONITOR
[2017-06-02] VITALS: BP 129/70
[2017-06-02] MEDS: IPRATROPIUM NEB FS 0.5 MG/2.5 ML AMPUL.NEB NEB SCH ×4 (00:40→20:11)
[2017-06-02] MEDS: ALBUTEROL FS 2.5 MG/3 ML VIAL.NEB NEB SCH ×4 (00:40→20:11)
--- NOTE | 2017-06-02 03:44 | NUR ---
SENIOR PRODUCT DEVELOPMENT SCIENTIST CLOSING NOTE PT REMAINED STABLE, NO SIGNIFICANT CHANGE IN CONDITION NOTED, ENDORSED TO BRISEIDA TELLES FOR MINOR.
[2017-06-02 04:00] VITALS: BP 91/46
--- NOTE | 2017-06-02 04:07 | NUR ---
TELE1/RN RECEIVE PATIENT SLEEPING, APPEAR COMFORTABLE, NO DISTRESS NOTED, VENT WORKING WELL, GT FEEDING INFUSING, HOB ELEVATED, WILL MONITOR.
--- NOTE | 2017-06-02 06:40 | NUR ---
TELE/RN PATIENT AWAKE, COMFORTABLE, NO DISTRESS NOTED, HOB ELEVATED, GT FEEDING INFUSING, ALL NEEDS ATTENDED AT THIS TIME. WILL CONTINUE TO MONITOR.
[2017-06-02] MEDS: ACETYLCYSTEINE 10% SOLN 400 MG/4 ML VIAL NEB SCH (07:52)
[2017-06-02 08:00] VITALS: BP 91/48
[2017-06-02] MEDS: SENNOSIDES 8.6 MG TABLET GT SCH (08:15)
[2017-06-02] MEDS: PANTOPRAZOLE 40 MG/PACK PACK NG SCH (08:15)
[2017-06-02] MEDS: clonazePAM 0.5 MG TABLET GT SCH ×2 (08:15→16:47)
[2017-06-02] MEDS: ASCORBIC ACID SYRUP 500 MG/5 ML UDC GT SCH (08:15)
[2017-06-02] MEDS: MIDODRINE HCL (5MG) 5 MG TABLET GT SCH ×3 (08:16→16:47)
[2017-06-02] MEDS: DAKINS QUARTER STRENGTH (0.125%) 480 ML BOTTLE TOP SCH (08:18)
[2017-06-02] MEDS: PROSOURCE / PROSTAT (PYXIS) 30 ML UDC GT SCH (08:18)
[2017-06-02] MEDS: NEOMY SULF/BACITRAC ZN/POLY 15 GM TUBE TP SCH (08:19)
[2017-06-02] MEDS: METOPROLOL TARTRATE 25 MG TABLET GT SCH ×2 (08:19→16:48)
[2017-06-02] MEDS: HYDROGEL DRESSING 90 GM TUBE TP SCH (08:19)
--- NOTE | 2017-06-02 08:22 | NUR ---
RN NOTES RECEIVED PATIENT ON BED, OBTUNDENT, WITH VENT SETTING ORDERED , AMBU BAG AT HOB, TRACH CARE DONE, NO DISTRESS NOTED, TOLERATING CURRENT VENT SETTING WELL, GTUBE FEEDING WITH FIBERSOURCE AT 55CC/HR, RUNNING , KEEP HOB ELEVATE AT ALL TIME TOLERATING WELL, NO RESIDUAL NOTED , HOB ELEVATED. ABDOMEN SOFT AND NON TENDER. SR UP FOR PATENT SAFETY ,CALL LIGHT WITHIN EASY REACH , CONTINUE TO MONITOR PT CLOSELY AND NOTIFY MD FOR ANY SIGNIFICANT CHANGES.
--- NOTE | 2017-06-02 10:45 | NUR ---
GRICELDA received a call from [facility] SCOTTY Christopher informing SW that Dr. Raman has arranged for Bioethics meeting with family at 12PM. According to SCOTTY Christopher, Dr. Raman's notes state that the consensus between the , daughter and the 2 sons is to proceed with weaning today. The family is going to meet Dr. Raman at noon, at which point, pt. will be started on morphine drift and the ventilator will be discontinued. SCOTTY Christopher to inquire with Dr. Raman if he will need SW present and notify SW if needed.
[2017-06-02 12:00] VITALS: BP 122/68
[2017-06-02] MEDS: LEVOTHYROXINE SODIUM 125 MCG TABLET GT SCH (12:21)
--- NOTE | 2017-06-02 12:59 | NUR ---
Social service consult requested by Dr. Raman for change of care due to terminally weaning pt. GRICELDA and major case detective met with pt's son and family members bedside. SW provided emotional support and inquired with family if they needed anything at this time. Pt's son Patrice informed SW they are just waiting for the doctor at this time. SW informed family she is available if they need anything. GRICELDA informed JULIANN SCOTTY Christopher regarding family not requiring any social service needs at this time, however, SW is available if needed.
[2017-06-02] MEDS ORDERED: MORPHINE SULFATE PF DRIP 250 MG in IV D5W 240 ML IV PRN (14:00)
--- NOTE | 2017-06-02 14:00 | NUR ---
PROGRAM SUPPORT SPECIALIST NOTE VENT WAS STOPPED BY RT BY ORDER DR BAZZI, NOT IN DISTRESS AT THIS TIME
[2017-06-02] MEDS ORDERED: KEY,NONCONTROL,TO KEEP IN PYXI 1 EA MC ONE (14:05)
--- NOTE | 2017-06-02 14:39 | NUR ---
ASSISTANT MANAGER TRAINEE NOTES PATIENT ON COMFORT CARE. FAMILY ON BEDSIDE, REFUSED TO CLEAN AND DO WOUND CARE ON THE PATIENT. WILL CONTINUE TO MONITOR ACCORDINGLY.
[2017-06-02] MEDS: MORPHINE SULFATE INJ 2 MG/ML DISP.SYRIN IV PRN ×2 (15:06→22:36)
--- NOTE | 2017-06-02 15:43 | NUR ---
AIR BATTLE MANAGER NOTE ON 6L VIA TRACH MASK , SAT 96% WILL CONT TO MONITOR CLOSELY
[2017-06-02] MEDS: FIBERSOURCE HN 1,000 ML BOTTLE GT PRN (15:46)
[2017-06-02 16:00] VITALS: BP 102/53
--- NOTE | 2017-06-02 19:04 | NUR ---
DESKTOP OPERATOR NOTE CONT ON 6L OF O2, NOT IN ACUTER DISTRESS ,WILL CONT TO MONITOR CLOSELY
--- NOTE | 2017-06-02 19:30 | NUR ---
RN NOTES RECEIVED PT. SLEEPING BUT AROUSABLE, PT LOOKS COMFORTABLE. SR ON TELE MONITOR , GPTUBE FEEDING RUNNING, NO RESIDUAL NOTED, F/C DRAINING CLEAR YELLOW URINE, SIDERAILS UPX2 CONTINUE TO MONITOR
[2017-06-02 20:00] VITALS: BP 108/49
--- NOTE | 2017-06-02 22:36 | NUR ---
RN NOTES PT. DOESN'T LOOK COMFORTABLE, MORPHINE 2MG IV GIVEN ORDERED
[2017-06-03] VITALS (7 sets, daily range): BP systolic 90–125; BP diastolic 49–59
[2017-06-03] MEDS: ALBUTEROL FS 2.5 MG/3 ML VIAL.NEB NEB SCH ×3 (00:48→13:30)
[2017-06-03] MEDS: IPRATROPIUM NEB FS 0.5 MG/2.5 ML AMPUL.NEB NEB SCH ×3 (00:48→13:30)
[2017-06-03] MEDS: MORPHINE SULFATE INJ 2 MG/ML DISP.SYRIN IV PRN ×2 (04:50→15:24)
--- NOTE | 2017-06-03 04:50 | NUR ---
RN NOTES PT. DOESN'T LOOK COMFORTABLE. MORPHINE 2 MG IV GIVEN FOR COMFORT
[2017-06-03] MEDS: FIBERSOURCE HN 1,000 ML BOTTLE GT PRN (04:58)
--- NOTE | 2017-06-03 06:49 | NUR ---
RN NOTES SLEEPING BUT AROUSABLE, MORNING CARE RENDERED, G-TUBE FEEDING RUNNING, NO RESIDUAL NOTED, SIDERAILS UPX2. PT. NEEDS ATTENDED
--- NOTE | 2017-06-03 07:00 | NUR ---
RN NOTES RECEIVED PT ON BED , OPES EYES AT TIMES , OBTUNDENT , RESPIRATION EVEN AND UNLABORED,TRACH DEPENDENT, ON T-COLLAR , O2 SAT 99% AT THIS TIME , NO SOB NOTED, FIBERSOURCE AT 55CC/HR RUNNING VIA G TUBE, , TOLERATING WELL , NO RESIDUAL NOTED , F/C DRAINING CLEAR YELLOW URINE, SIDE RAILS UPX3,R UPPER ARM PICC LINE CDI, BED LOCKED AND IN LOWEST POSITION , CONTINUE TO MONITOR PT CLOSELY.
[2017-06-03] MEDS: DAKINS QUARTER STRENGTH (0.125%) 480 ML BOTTLE TOP SCH (08:35)
[2017-06-03] MEDS: NEOMY SULF/BACITRAC ZN/POLY 15 GM TUBE TP SCH (08:35)
[2017-06-03] MEDS: PANTOPRAZOLE 40 MG/PACK PACK NG SCH (08:36)
[2017-06-03] MEDS: clonazePAM 0.5 MG TABLET GT SCH ×2 (08:36→16:46)
[2017-06-03] MEDS: HYDROGEL DRESSING 90 GM TUBE TP SCH (08:36)
[2017-06-03] MEDS: SENNOSIDES 8.6 MG TABLET GT SCH (08:37)
[2017-06-03] MEDS: MIDODRINE HCL (5MG) 5 MG TABLET GT SCH ×3 (08:37→16:46)
[2017-06-03] MEDS: ASCORBIC ACID SYRUP 500 MG/5 ML UDC GT SCH (08:37)
[2017-06-03] MEDS: METOPROLOL TARTRATE 25 MG TABLET GT SCH ×2 (08:37→16:46)
--- NOTE | 2017-06-03 12:00 | NUR ---
RN NOTES FAMILY AT THE BEDSIDE, VSS STABLE AT THIS TIME , R UPPER PICC LINE CDI, CONTINUE TO MONITOR.
[2017-06-03] MEDS: LEVOTHYROXINE SODIUM 125 MCG TABLET GT SCH (13:31)
--- NOTE | 2017-06-03 18:00 | NUR ---
RN NOTES O2 SAT 60, ORAL AND TRACH SUCTIONING DONE, BRADYCARDIA IN 30'S ON THE TELE MONITOR , PT IS APPEARS COMFORTABLE , CALL MADE TO FAMILY MEMBER REGARDING PT CURRENT SITUATION . SPOKEN WITH SON , HE SAID HE WILL BE IN IN 10 MINUTES TO SEE HIM . CONTINUE COMFORT CARE,
--- NOTE | 2017-06-03 18:44 | NUR ---
RN NOTES PT HAS NO PULSE NO HEAR RATE , NO BLOOD PRESSURE, VERIFIED , BY TWO RN'S , CHARGE NURSE AT THE BEDSIDE, DR BAZZI PAGED AND NOTIFIED, FAMILY NOTIFIED.
--- NOTE | 2017-06-03 18:45 | NUR ---
TEL RN, patient found no pulse and respiration,carotid pulses not apreciated. pronounced by 2 RN'S ricky family and and nursing bulk plant supervisor was notified at present time family at bed side
--- NOTE | 2017-06-03 18:50 | NUR ---
RN NOTES FAMILY AT THE BEDSIDE , VERBALIZED UNDERSTANDING OF CURRENT CONDITION .
--- NOTE | 2017-06-03 20:22 | NUR ---
RN NOTES FAMILY AT BEDSIDE. PRIVACY PROVIDED. MORTUARY ARRANGEMENT PER FAMILY. FAMILY WILL INFORM NURSING OF THE MORTUARY OF CHOICE.
--- NOTE | 2017-06-03 21:00 | NUR ---
RN NOTES POST MORTEM CARE RENDERED. PICC LINE REMOVED, PRESSURE DRESSING APPLIED. TRACH, GT REMAINS INTACT. PATIENT MOVED TO [facility]. PATIENT'S FAMILY AND DAUGHTER, SUNG, MADE AWARE. FAMILY WILL CALL FOR MORTUARY ARRANGEMENTS. CN AND NURSING PATTERN DRUM MAKER AWARE.
== END 2017-06-03 21:07 | disposition expired | DRG 853 ==
LOC: ER 11:59 → TELE1 15:02 → TELE-TD 05-26 19:48 → TELE1 05-28 12:27
PROVIDERS: ADMIT Internal Medicine; ATTEND Internal Medicine
PROC: 5A1955Z Respiratory Ventilation, Greater than 96 Consecutive Hours (ICD-10-PCS; principal; 2017-05-19)
PROC: 02HV33Z Insertion of Infusion Device into Superior Vena Cava, Percutaneous Approach (ICD-10-PCS; 2017-05-20)
PROC: 0KBP0ZZ Excision of Left Hip Muscle, Open Approach (ICD-10-PCS; 2017-05-25)
PROC: 0KBN0ZZ Excision of Right Hip Muscle, Open Approach (ICD-10-PCS; 2017-05-25)
DX: A41.9 Sepsis, unspecified organism (principal); J18.9 Pneumonia, unspecified organism; N18.6 End stage renal disease; L89.154 Pressure ulcer of sacral region, stage 4; E43 Unspecified severe protein-calorie malnutrition; R53.2 Functional quadriplegia; Z99.11 Dependence on respirator [ventilator] status; J96.12 Chronic respiratory failure with hypercapnia; G93.1 Anoxic brain damage, not elsewhere classified; C90.00 Multiple myeloma not having achieved remission; I13.2 Hypertensive heart and chronic kidney disease with heart failure and with stage 5 chronic kidney disease, or end stage renal disease; J44.0 Chronic obstructive pulmonary disease with (acute) lower respiratory infection; N39.0 Urinary tract infection, site not specified; E87.2 Acidosis; N13.8 Other obstructive and reflux uropathy; J98.11 Atelectasis; J90 Pleural effusion, not elsewhere classified; T17.890A Other foreign object in other parts of respiratory tract causing asphyxiation, initial encounter; Z93.0 Tracheostomy status; Z93.1 Gastrostomy status; R13.10 Dysphagia, unspecified; D64.9 Anemia, unspecified; D72.819 Decreased white blood cell count, unspecified; E03.9 Hypothyroidism, unspecified; E05.90 Thyrotoxicosis, unspecified without thyrotoxic crisis or storm; E11.22 Type 2 diabetes mellitus with diabetic chronic kidney disease; I25.10 Atherosclerotic heart disease of native coronary artery without angina pectoris; N40.0 Benign prostatic hyperplasia without lower urinary tract symptoms; Z88.1 Allergy status to other antibiotic agents; Z98.890 Other specified postprocedural states; Z66 Do not resuscitate; Z51.5 Encounter for palliative care; Z79.899 Other long term (current) drug therapy; Z80.7 Family history of other malignant neoplasms of lymphoid, hematopoietic and related tissues; Z82.49 Family history of ischemic heart disease and other diseases of the circulatory system; Z87.891 Personal history of nicotine dependence; Z86.718 Personal history of other venous thrombosis and embolism; Z95.1 Presence of aortocoronary bypass graft; Z98.61 Coronary angioplasty status; Z99.2 Dependence on renal dialysis; H40.9 Unspecified glaucoma; E83.51 Hypocalcemia; G40.901 Epilepsy, unspecified, not intractable, with status epilepticus; N40.1 Benign prostatic hyperplasia with lower urinary tract symptoms; X58.XXXA Exposure to other specified factors, initial encounter; Y92.89 Other specified places as the place of occurrence of the external cause; J39.8 Other specified diseases of upper respiratory tract
CPT/HCPCS: 31720; 36415; 36600; 70450-TC; 71010-TC; 80048-TC; 80053-TC; 80076-TC; 81000-TC; 83605-TC; 83735-TC; 83880; 84100-TC; 84443-TC; 84484-TC; 85025-TC; 85652-TC; 85730-TC; 87040-TC; 87070-TC; 87081-TC; 87086-TC; 87186-TC; 94002-TC; 94003-TC; 94640-TC; 94668-TC; 94760-TC; 94762-TC; 95819-TC; A4216; A4606; A6248; A6253; A6402; A6403; J0770; J1644; J1953; J2020; J2060; J2185; J2270; J2274; J2543; J3480; J3490; J7030; J7040; J7050; J7060; Z7610